=== PATIENT | male | born 1950 | race African-American/Black ===

== ENCOUNTER 2017-01-19 11:34 | Emergency (ER) | payer MEDICARE, OTHER ==
[~2017-01-19] VITALS: Ht 177.8 cm; Wt 65.8 kg
[2017-01-19] VITALS (12 sets, daily range): BP systolic 103–215; BP diastolic 82–105
[~2017-01-19 11:34] MED LIST: ALDACTONE50 MG PO; ASPIRIN EC81 MG PO; ATORVASTATIN CA40 MG PO; CLON; CLONIDINE; DILTIAZEM 24HR240 MG PO; HYDRALAZINE HC100 MG PO; HYDROCHLOROTHIA25 MG PO; K-DUR20 MEQ PO; LEXIVA700 MG PO; MULTIVITAMINS1 EAC2 PO; SERTRALINE HCL25 MG PO
[2017-01-19] MEDS ORDERED: LORazepam Inj 2mg/ml 1ml IV ONE (12:15)
--- NOTE | 2017-01-19 12:35 | Emergency Room Report ---
History of Present Illness General Chief Complaint: General Complaint Source: Patient, Medical Record Present Illness HPI Patient presents with complaints of chills Patient reports that he was in good health yesterday upon waking this morning felt increased chills and uncomfortable sensation Patient was on the phone with his physician's nurse practitioner Who states the patient has an undetectable load for the HIV virus He also has a fairly high CD4 count Patient denies any neck pain or photophobia denies any chest pain or shortness of breath after further questioning he reports smoking marijuana at nighttime yesterday before going to sleep Denies any focal weakness Allergies: Coded Allergies: CODEINE (Verified Allergy, 04/09/12) Patient History Past Medical History: see triage record Pertinent Family History: none Reviewed Nursing Documentation: PMH: Agreed, PSxH: Agreed Nursing Documentation-PMH Past Medical History: No History, Except For Hx Cardiac Problems: Yes Hx Hypertension: Yes Hx Pacemaker: No Hx Asthma: No Hx COPD: No Hx Diabetes: No Hx Cancer: No Hx Gastrointestinal Problems: No Hx Dialysis: No Hx Neurological Problems: Yes Hx Cerebrovascular Accident: Yes Hx Transient Ischemic Attacks: No Hx Dementia: No Hx Alzheimer's Disease: No Hx Parkinson's Disease: No Hx Meningitis: No Hx Encephalitis: No Hx Seizures: Yes Hx Epilepsy: No Hx Multiple Sclerosis: No Hx Cerebral Palsy: No Hx Amyotrophic Lat Sclerosis: No Hx Guillian-[place] Syndrome: No Hx Paralysis: No Hx Peripheral Neuropathy: No Hx Spinal Cord Injury: No Hx Head Trauma: No Hx Traumatic Brain Injury: No Hx Memory Loss: No Hx Concentration Difficulty: No Hx Speech Problem: No Hx Tremors: No Hx Vertigo: No Hx Dizziness: No Hx Syncope: No Hx Headaches: No Hx Aphasia: No Hx Dysphasia: No Hx Numbness: No Hx Weakness: No Hx Fatigue: No Hx Neurologic Surgery: No Hx Brain Shunt: No Review of Systems All Other Systems: negative except mentioned in HPI Physical Exam Vital Signs Date Time Temp Pulse Resp B/P (MAP) Pulse Ox O2 Delivery O2 Flow Rate FiO2 01/19/17 11:44 98.2 109 14 193/105 99 Room Air Sp02 EP Interpretation: reviewed, normal General Appearance: mild distress - appears uncomfortable shaking Head: normocephalic, atraumatic Eyes: bilateral eye PERRL, bilateral eye EOMI ENT: hearing grossly normal, normal pharynx, TMs + canals normal, uvula midline Neck: full range of motion, supple, no meningismus, no bony tend Respiratory: lungs clear, normal breath sounds, no rhonchi, no respiratory distress, no retraction, no accessory muscle use Cardiovascular #1: normal peripheral pulses, regular rate, rhythm, no edema, no gallop, no JVD, no murmur Gastrointestinal: normal bowel sounds, non tender, soft, no mass, no organomegaly, non-distended, no guarding, no hernia, no pulsatile mass, no rebound Genitourinary: no CVA tenderness Musculoskeletal: normal inspection Neurologic: oriented x3, responsive, 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, motor strength/ tone normal, sensory intact Psychiatric: mood/affect normal Skin: normal color, no rash, warm/dry, palpation normal Lymphatic: normal inspection, no adenopathy Procedures Critical Care Time Critical Care Time 40 minutes for multiple re\re evaluations Critical findings requiring repeat evaluation discussion with transferring facility Discussion with family Not including any procedural time Lumbar Puncture Consent: Emergent Location: L3-L4 Anesthesia: 1% Lidocaine w/ Epi Volume Anesthetic (ccs): 5 Prep: bedadine Needle Size: 1 1/2 CSF: bloody Post-Procedure: other - sitting Attempts: Other - two Complications: none Patient Tolerated: Well - Patient was attempted in a sitting position, patient continues to be too tremulous, uncooperative, the palpation of the lower back in the L3-L4 region all the way down to the sacral area shows severe bony anomaly. Anatomy was difficult to evaluate and unfortunately the lumbar puncture results at in a bloody tap. This was sent off for culture Medical Decision Making Diagnostic Impression: Primary Impression: Elevated troponin I level ER Course Patient is a fairly complex patient with multiple differential to consideration including but not limited to cardiac cardiopulmonary and vascular emergencies Infectious pathology also entertained Patient continues to deny any chest pain or shortness of breath Simply complains of feeling chills White blood cell count is elevated Patient's chemistry and chest x-ray are otherwise benign Troponin however came back elevated as well This was repeated and shows increased number EKG has been repeated on different occasions does not show any ST elevation Patient has repeat history and continues to deny any abdominal pain or chest pain Denies any shortness of breath Patient is somewhat agitated reports wanting to stand and walk around At this time given the elevated and rising troponin I felt the patient required to be at a facility with cardiac catheterization [facility] was contacted and cardiology graciously accepted the patient The continues to be a concern of possible encephalopathy arising from infectious versus other process Labs Test 01/19/17 12:25 01/19/17 13:30 01/19/17 13:45 White Blood Count 16.5 K/UL (4.8-10.8) Red Blood Count 3.73 M/UL (4.70-6.10) Hemoglobin 14.6 G/DL (14.2-18.0) Hematocrit 43.1 % (42.0-52.0) Mean Corpuscular Volume 116 FL (80-99) Mean Corpuscular Hemoglobin 39.0 PG (27.0-31.0) Mean Corpuscular Hemoglobin Concent 33.8 G/DL (32.0-36.0) Red Cell Distribution Width 12.1 % (11.6-14.8) Platelet Count 205 K/UL (150-450) Mean Platelet Volume 9.6 FL (6.5-10.1) Neutrophils (%) (Auto) % (45.0-75.0) Lymphocytes (%) (Auto) % (20.0-45.0) Monocytes (%) (Auto) % (1.0-10.0) Eosinophils (%) (Auto) % (0.0-3.0) Basophils (%) (Auto) % (0.0-2.0) Differential Total Cells Counted 100 Neutrophils % (Manual) 88 % (45-75) Lymphocytes % (Manual) 4 % (20-45) Monocytes % (Manual) 5 % (1-10) Eosinophils % (Manual) 1 % (0-3) Basophils % (Manual) 0 % (0-2) Band Neutrophils 2 % (0-8) Platelet Estimate Adequate Platelet Morphology Normal Macrocytosis 1+ Sodium Level 144 mEQ/L (135-145) Potassium Level 3.5 mEQ/L (3.4-4.9) Chloride Level 103 mEQ/L (98-107) Carbon Dioxide Level 16 mEQ/L (20-30) Anion Gap 25 (5-15) Blood Urea Nitrogen 15 mg/dL (7-23) Creatinine 1.6 mg/dL (0.7-1.2) Estimat Glomerular Filtration Rate 52.5 mL/min (>60) Glucose Level 216 mg/dL (74-106) Calcium Level 10.4 mg/dL (8.6-10.2) Total Bilirubin 0.5 mg/dL (0.0-1.2) Aspartate Amino Transf (AST/SGOT) 26 U/L (5-40) Alanine Aminotransferase (ALT/SGPT) 29 U/L (3-41) Alkaline Phosphatase 91 U/L (40-129) Total Creatine Kinase 140 U/L (38-174) Creatine Kinase MB 2.7 ng/mL (< 6.7) Creatine Kinase MB Relative Index 1.9 Troponin I 0.33 ng/mL (<=0.30) Total Protein 8.6 g/dL (6.6-8.7) Albumin 5.0 g/dL (3.5-5.2) Globulin 3.6 g/dL Albumin/Globulin Ratio 1.3 (1.0-2.7) EKG Diagnostic Results Rate: normal Rhythm: NSR ST Segments: no acute changes Rhythm Strip Diag. Results EP Interpretation: yes Rate: 66 Rhythm: NSR, no PVC's, no ectopy Chest X-Ray Diagnostic Results Chest X-Ray Diagnostic Results : Chest X-Ray Ordered: Yes # of Views/Limited/Complete: 1 View Indication: Chest Pain EP Interpretation: Yes Interpretation: no consolidation, no effusion, no pneumothorax Impression: No acute disease Electronically Signed by: Camilla Beltran, CT/MRI/US Diagnostic Results CT/MRI/US Diagnostic Results : Impression ct head:nad cta chest/abd/pelvis:IMPRESSION: No evidence of thoracic or abdominal aortic dissection or aneurysm Ectatic but not frankly aneurysmal aortic branches and bilateral iliac arteries Bilateral intermediate attenuation renal lesions. Possibly complex cysts, but solid neoplastic lesions are not excludable. Consider further evaluation with multiphasic CT, or MRI Bilateral renal cysts. Bilateral subcentimeter low-attenuation renal lesions, too small to characterize, most likely benign simple cyst. No further followup necessary Apparent mild thickening of the descending and sigmoid colon. Probably artifact of under distention, mild colitis changes are not completely excludable, however. Correlate with clinical findings Small subpleural bleb in the right upper lobe. Posterior dependent atelectatic changes and crowding of vascular markings at the lung bases. No acute or significant pulmonary abnormality Cardiomegaly Ectat -- ic bilateral pulmonary arteries, could indicate pulmonary arterial hypertension Thyromegaly. Multiple subcentimeter thyroid nodules. No further followup necessary Multiple thoracic compression fracture deformities, as described above. Age indeterminate. Consider MRI for further evaluation if clinically relevant Possible mild left lower pole renal artery stenosis Colonic diverticulosis Other findings as noted, including prostatomegaly, degenerative spondylosis, bilateral gynecomastia Last Vital Signs Date Time Temp Pulse Resp B/P (MAP) Pulse Ox O2 Delivery O2 Flow Rate FiO2 01/19/17 11:44 98.2 109 14 193/105 99 Room Air Status: improved Disposition: [facility] Condition: Serious CAMILLA BELTRAN D.O. Jan 19, 2017 12:35
[2017-01-19 12:37] LABS: MEAN CORPUSCULAR HGB CONC 33.8 G/DL (32.0-36.0); MEAN CORPUSCULAR VOLUME 116 FL (80-99); MEAN PLATELET VOLUME 9.6 FL (6.5-10.1); PLATELET COUNT 205 K/UL (150-450); RED BLOOD COUNT 3.73 M/UL (4.70-6.10); RED CELL DISTRIBUTION WIDTH 12.1 % (11.6-14.8); WHITE BLOOD COUNT 16.5 K/UL (4.8-10.8)
[2017-01-19 13:03] LABS: TROPONIN I 0.33 ng/mL (<=0.30)
[2017-01-19 13:05] LABS: ALBUMIN/GLOBULIN RATIO 1.3 (1.0-2.7); CALCIUM 10.4 mg/dL (8.6-10.2); CREATININE 1.6 mg/dL (0.7-1.2); GLOMERULAR FILTRATION RATE 52.5 mL/min (>60); POTASSIUM 3.5 mEQ/L (3.4-4.9); TOTAL PROTEIN 8.6 g/dL (6.6-8.7)
[2017-01-19 13:15] LABS: CKMB 2.7 ng/mL (< 6.7)
[2017-01-19 13:44] LABS: BAND NEUTROPHILS % (MANUAL) 2 % (0-8); EOSINOPHILS % (MANUAL) 1 % (0-3); LYMPHOCYTES % (MANUAL) 4 % (20-45); NEUTROPHILS % (MANUAL) 88 % (45-75); TOTAL CELLS COUNTED 100
[2017-01-19 13:45] LABS: BASOPHILS % (MANUAL) 0 % (0-2); PLATELET ESTIMATE ADEQUATE; PLATELET MORPHOLOGY NORMAL
[2017-01-19 13:46] LABS: MACROCYTES 1+
[2017-01-19 14:04] LABS: APPEARANCE,URINE TURBID; KETONES,URINE NEGATIVE (NEGATIVE); LEUKOCYTE ESTERASE ,URINE 1+ (NEGATIVE); NITRITE,URINE NEGATIVE (NEGATIVE); PH,URINE 5 (4.5-8.0); PROTEIN,URINE 3+ (NEGATIVE); UROBILINOGEN,URINE NORMAL MG/DL (0.0-1.0)
[2017-01-19 14:11] LABS: TROPONIN I 0.83 ng/mL (<=0.30)
[2017-01-19] MEDS ORDERED: cefTRIAXone 1 GM in NS 55 ML IVPB ONE (14:15)
[2017-01-19] MEDS ORDERED: Nitroglycerin 2% oint pkt TOPIC ONE (14:15)
[2017-01-19] MEDS ORDERED: Midazolam 2mg/2ml Inj IVP ONE ×2 (14:15→14:30)
[2017-01-19 14:25] LABS: BACTERIA,URINE FEW /HPF; RBC,URINE 0-2 /HPF (0 - 0); SQUAMOUS EPITHELIAL CELL,UR OCCASIONAL /LPF (NONE/OCC)
[2017-01-19] MEDS ORDERED: Vancomycin 1 GM in NS 275 ML IVPB ONE (14:45)
[2017-01-19] MEDS ORDERED: CATAPRES0.1 MG ORAL (14:49)
[2017-01-19] MEDS ORDERED: LEVETIRACETAM750 M1 ORAL (14:49)
[2017-01-19] MEDS ORDERED: TERBINAFINE HC250 MG PO (14:52)
--- NOTE | 2017-01-19 15:26 | Diagnostic Imaging Report ---
Indication: SOB Technique: One view of the chest Comparison: 04/06/2012 Findings: The heart is enlarged. Lungs and pleural spaces are clear. There is right paratracheal prominence which appear similar to the prior study. The aorta is somewhat tortuous and ectatic Impression: Cardiomegaly No acute process
[2017-01-19] MEDS ORDERED: Vancomycin 1gm inj IVPB ONE (15:59)
--- NOTE | 2017-01-19 15:59 | Diagnostic Imaging Report ---
Indications: Altered mental status Technique: Spiral acquisitions obtained through the brain. Angled axial and coronal 5 x 5 mm slices were reconstructed. Total dose length product 1470 mGycm. CTDI vol(s) 70 mGy. Dose reduction achieved using automated exposure control Comparison: 07/12/2011 and 06/04/2011 Findings: There is an area of encephalomalacia in the left occipital and posterior temporal lobes, corresponding to the area of hematoma demonstrated on the earlier CTs. There is suggestion of some peripheral dystrophic calcification. No evidence of acute hemorrhage or edema. No mass effect or midline shift. Previously demonstrated mass effect has resolved, and there is now some exvacuodilatation of the atrium of the left lateral ventricle related to the surrounding encephalomalacia. Again demonstrated is age-related enlargement of the ventricles and extra-axial CSF spaces. Again demonstrated is chronic periventricular deep white matter ischemic change, as well as an old right inferior frontal deep white matter infarct. There is a lacunar infarct within the left parietal deep white matter, extending into the basal ganglia, which was not evident previously but appears chronic. Intact calvarium visualized orbits are unremarkable. Multiple mucous retention cysts are seen in the left maxillary sinus. Previously demonstrated right maxillary sinus mucous retention cyst has decreased significantly in size. Impression: Negative for acute intracranial bleed or mass effect Large area of left temporal and occipital encephalomalacia, corresponding to area of parenchymal hemorrhage described on prior 2012 CT scans Other chronic and age-related changes, including multiple old infarcts, as described Sinus disease Findings previously discussed by phone with Dr. Todd in the emergency room The CT scanner at [facility] is accredited by the [employer] and the scans are performed using protocols designed to limit radiation exposure to as low as reasonably achievable to attain images of sufficient resolution adequate for diagnostic evaluation.
--- NOTE | 2017-01-19 16:34 | Diagnostic Imaging Report ---
INDICATION: Abdominal, chest, and groin area pain TECHNIQUE: IV administration nonionic contrast . Arterial phase spiral acquisitions obtained through the chest, abdomen, and pelvis. Multiplanar and 3-D reconstructions were generated. Total dose length product 968 mGycm. CTDIvol(s) 8, 48, 14 mGy. Radiation dose was minimized using automated exposure control COMPARISON: None FINDINGS Chest: No evidence of thoracic aortic aneurysm or dissection. Classic branching anatomy of the great neck vessels. Although protocol not tailored for evaluation of pulmonary embolus, the pulmonary arteries are reasonably well opacified, and no gross evidence of pulmonary embolus is demonstrated. There is a small subpleural bleb in the right upper lobe. There are posterior dependent atelectatic changes and crowding of the vascular markings posteriorly at the lung bases. The heart is enlarged demonstrating four-chamber enlargement. The right and left pulmonary arteries are somewhat ectatic. No mediastinal or hilar mass or adenopathy. The thyroid is enlarged, demonstrating multiple mostly small nodules, largest measuring 9 mm in diameter. No axillary or chest wall mass or adenopathy. There is mild bilateral gynecomastia. There are compression fracture deformities of T6, T7, T9, and T12, and questionably of T4 and T5. Abdomen pelvis: No evidence of abdominal aortic aneurysm or dissection demonstrated. There are mural calcifications of the abdominal aorta, no significant stenosis. There may be slight compression of the celiac origin by the arcuate ligament, but this does not result in any significant narrowing. The superior mesenteric artery and proximal branches are patent without significant stenosis. There are 2 right and 2 left renal arteries. The lower pole left renal artery and main be slightly narrowed at its origin. The bilateral common iliac arteries are ectatic but not frankly aneurysmal. The external iliac arteries are ectatic, nonstenotic. Patent ectatic but not aneurysmal bilateral internal iliac arteries. No evidence of dissection. The liver, gallbladder, bile ducts, pancreas, spleen, adrenals are unremarkable. The kidneys demonstrate bilateral cysts, as well as bilateral subcentimeter low-attenuation lesions which are too small to characterize. In the interpolar region of the right kidney, there is a 2 cm lesion which demonstrates nonspecific soft tissue attenuation, however. In the posteromedial interpolar region of the left kidney, there is likewise a 1.7 cm intermediate attenuation lesion as well as a questionable 13 mm intermediate attenuation lesion within the lower pole. No pelvic mass or adenopathy. The prostate is prominent. Apparent mild thickening of descending and sigmoid colon noted, probably artifact of under distention. There are a few scattered colonic diverticula. The appendix is normal. No small bowel distention. No free or loculated intraperitoneal air or fluid is evident. There are degenerative changes of the lumbar spine. IMPRESSION: No evidence of thoracic or abdominal aortic dissection or aneurysm Ectatic but not frankly aneurysmal aortic branches and bilateral iliac arteries Bilateral intermediate attenuation renal lesions. Possibly complex cysts, but solid neoplastic lesions are not excludable. Consider further evaluation with multiphasic CT, or MRI Bilateral renal cysts. Bilateral subcentimeter low-attenuation renal lesions, too small to characterize, most likely benign simple cyst. No further followup necessary Apparent mild thickening of the descending and sigmoid colon. Probably artifact of under distention, mild colitis changes are not completely excludable, however. Correlate with clinical findings Small subpleural bleb in the right upper lobe. Posterior dependent atelectatic changes and crowding of vascular markings at the lung bases. No acute or significant pulmonary abnormality Cardiomegaly Ectat -- ic bilateral pulmonary arteries, could indicate pulmonary arterial hypertension Thyromegaly. Multiple subcentimeter thyroid nodules. No further followup necessary Multiple thoracic compression fracture deformities, as described above. Age indeterminate. Consider MRI for further evaluation if clinically relevant Possible mild left lower pole renal artery stenosis Colonic diverticulosis Other findings as noted, including prostatomegaly, degenerative spondylosis, bilateral gynecomastia The CT scanner at [facility] is accredited by the [employer] and the scans are performed using protocols designed to limit radiation exposure to as low as reasonably achievable to attain images of sufficient resolution adequate for diagnostic evaluation.
[2017-01-19 17:18] LABS: REFLEX LACTIC ACID YES OR NO YES
[2017-01-19] MEDS ORDERED: Acetaminophen 500mg (ES) tab ORAL ONE (20:30)
[2017-01-19] MEDS ORDERED: cloNIDine 0.2mg Tab ORAL ONE (22:30)
--- NOTE | 2017-01-21 15:54 | Cardiology Report ---
APPROVED REPORT EKG Measurement Heart [id number] Normal sinus rhythm with sinus arrhythmia Normal ECG
--- NOTE | 2017-01-21 15:55 | Cardiology Report ---
APPROVED REPORT EKG Measurement Heart [id number] Normal sinus rhythm Biatrial enlargement Abnormal ECG
== END 2017-01-19 22:55 | disposition other institution (70) ==
LOC: EMR 13:00 → EDBEDREQ 13:36 → EMR 22:55
DX: R79.89 Other specified abnormal findings of blood chemistry (principal); I10 Essential (primary) hypertension; Z88.6 Allergy status to analgesic agent; Z86.73 Personal history of transient ischemic attack (TIA), and cerebral infarction without residual deficits; R41.82 Altered mental status, unspecified; I51.7 Cardiomegaly; K57.30 Diverticulosis of large intestine without perforation or abscess without bleeding
CPT/HCPCS: 36415; 62270; 70450; 71010; 71275; 74174; 80053; 80300; 81003; 82550; 82553; 82962; 83605; 84484; 85007; 85025; 93005; 96361; 96374; 96375; 99285; J0360; J0696; J2250; J3370; J7050

== ENCOUNTER 2017-01-29 08:56 | Inpatient (IN) | payer OTHER, MEDICARE ==
[~2017-01-29] VITALS: Ht 177.8 cm; Wt 65.8 kg
[~2017-01-29 08:56] MED LIST changes: +CATAPRES0.1 MG ORAL; +LEVETIRACETAM750 M1 ORAL; +TERBINAFINE HC250 MG PO
[2017-01-29 09:30] VITALS: BP 163/100
[2017-01-29 10:09] LABS: MEAN CORPUSCULAR HEMOGLOBIN 37.4 PG (27.0-31.0); MEAN CORPUSCULAR HGB CONC 33.1 G/DL (32.0-36.0); MEAN CORPUSCULAR VOLUME 113 FL (80-99); MEAN PLATELET VOLUME 7.5 FL (6.5-10.1); PLATELET COUNT 308 K/UL (150-450); RED BLOOD COUNT 3.59 M/UL (4.70-6.10); WHITE BLOOD COUNT 8.6 K/UL (4.8-10.8)
[2017-01-29 10:25] LABS: ALBUMIN/GLOBULIN RATIO 1.4 (1.0-2.7); CALCIUM 9.2 mg/dL (8.6-10.2); CREATININE 1.5 mg/dL (0.7-1.2); GLOMERULAR FILTRATION RATE 56.6 mL/min (>60); POTASSIUM 3.4 mEQ/L (3.4-4.9); TOTAL PROTEIN 7.2 g/dL (6.6-8.7); TROPONIN I < 0.30 ng/mL (<=0.30)
[2017-01-29 10:28] LABS: REFLEX LACTIC ACID YES OR NO YES
--- NOTE | 2017-01-29 10:29 | Diagnostic Imaging Report ---
Indication: SOB Technique: One view of the chest Comparison: 01/19/2017 Findings: Lungs and pleural spaces are clear. Heart size is normal . Better inspiration currently Impression: No acute process
[2017-01-29 10:35] LABS: BAND NEUTROPHILS % (MANUAL) 1 % (0-8); BASOPHILS % (MANUAL) 0 % (0-2); CKMB 3.1 ng/mL (< 6.7); EOSINOPHILS % (MANUAL) 1 % (0-3); LYMPHOCYTES % (MANUAL) 9 % (20-45); NEUTROPHILS % (MANUAL) 79 % (45-75); PLATELET ESTIMATE ADEQUATE; PLATELET MORPHOLOGY NORMAL; TOTAL CELLS COUNTED 100
[2017-01-29 10:37] LABS: MACROCYTES 1+
[2017-01-29 10:46] LABS: BILIRUBIN,DIRECT 0.3 mg/dL (0.1-0.3)
[2017-01-29 10:47] VITALS: BP 157/98
[2017-01-29 11:33] VITALS: BP 168/112
[2017-01-29 11:37] LABS: APPEARANCE,URINE SLIGHTLY CLOUDY; KETONES,URINE NEGATIVE (NEGATIVE); LEUKOCYTE ESTERASE ,URINE 2+ (NEGATIVE); NITRITE,URINE NEGATIVE (NEGATIVE); PH,URINE 5 (4.5-8.0); PROTEIN,URINE 3+ (NEGATIVE); UROBILINOGEN,URINE 1 MG/DL (0.0-1.0)
[2017-01-29 11:58] LABS: BACTERIA,URINE FEW /HPF; GRANULAR CASTS,URINE 0-2 /LPF; SQUAMOUS EPITHELIAL CELL,UR FEW /LPF (NONE/OCC)
[2017-01-29] MEDS ORDERED: cefTRIAXone 1 GM in NS 55 ML IVPB ONE (12:45)
[2017-01-29 13:16] VITALS: BP 125/93
[2017-01-29] MEDS ORDERED: Morphine Sulfate 2mg/ml Inj IVP PRN (13:30)
[2017-01-29] MEDS ORDERED: Albuterol/Ipratropium 3ml neb HHN PRN (13:30)
[2017-01-29] MEDS ORDERED: Miralax 17gm pkt ORAL PRN (13:30)
[2017-01-29] MEDS ORDERED: PLAVIX75 MG ORAL (13:33)
[2017-01-29 14:25] LABS: URIC ACID 6.5 mg/dL (3.0-7.5)
[2017-01-29] MEDS: dilTIAZem HCl CD 240mg cap ORAL SCH (15:00)
--- NOTE | 2017-01-29 15:40 | Emergency Room Report ---
History of Present Illness General Chief Complaint: General Complaint Source: Patient Present Illness HPI Patient is a 66-year-old male who presented after increased generalized weakness. The patient had recently had been hospitalized after chest discomfort and had recent cardiac stent placed. The patient denied any chest pain. He reported having a prior history of hypertension. He had prior history of HIV. He was recently noted to have a urinary tract infection. Allergies: Coded Allergies: CODEINE (Verified Allergy, 04/09/12) Patient History Past Medical History: see triage record Reviewed Nursing Documentation: PMH: Agreed, PSxH: Agreed Nursing Documentation-PMH Past Medical History: No History, Except For Hx Cardiac Problems: Yes - stent Hx Hypertension: Yes Hx Pacemaker: No Hx Asthma: No Hx COPD: No Hx Diabetes: No Hx Cancer: No Hx Gastrointestinal Problems: No Hx Dialysis: No Hx Neurological Problems: Yes Hx Cerebrovascular Accident: Yes Hx Transient Ischemic Attacks: No Hx Dementia: No Hx Alzheimer's Disease: No Hx Parkinson's Disease: No Hx Meningitis: No Hx Encephalitis: No Hx Seizures: Yes Hx Epilepsy: No Hx Multiple Sclerosis: No Hx Cerebral Palsy: No Hx Amyotrophic Lat Sclerosis: No Hx Guillian-Protection Syndrome: No Hx Paralysis: No Hx Peripheral Neuropathy: No Hx Spinal Cord Injury: No Hx Head Trauma: No Hx Traumatic Brain Injury: No Hx Memory Loss: No Hx Concentration Difficulty: No Hx Speech Problem: No Hx Tremors: No Hx Vertigo: No Hx Dizziness: No Hx Syncope: No Hx Headaches: No Hx Aphasia: No Hx Dysphasia: No Hx Numbness: No Hx Weakness: No Hx Fatigue: No Hx Neurologic Surgery: No Hx Brain Shunt: No Review of Systems All Other Systems: negative except mentioned in HPI Physical Exam Vital Signs Date Time Temp Pulse Resp B/P (MAP) Pulse Ox O2 Delivery O2 Flow Rate FiO2 01/29/17 08:59 97.7 119 18 115/78 98 Room Air Sp02 EP Interpretation: reviewed, normal General Appearance: normal inspection, well appearing, no apparent distress, alert, GCS 15, Chronically Ill Head: atraumatic ENT: normal ENT inspection, hearing grossly normal, normal voice Neck: normal inspection, full range of motion, supple, no bony tend Respiratory: normal inspection, lungs clear, normal breath sounds, no respiratory distress, no retraction, no wheezing Cardiovascular #1: regular rate, rhythm, no edema Gastrointestinal: normal inspection, normal bowel sounds, non tender, soft, no guarding, no hernia Genitourinary: no CVA tenderness Musculoskeletal: normal inspection, back normal, normal range of motion Neurologic: normal inspection, alert, oriented x3, responsive, 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 Differential diagnosis included was not limited to anemia, urinary tract infection, electrolyte abnormality, hypothyroidism, myocardial infarction, myasthenia gravis, dehydration, among others. Because of complexity of patient's case laboratory testing and imaging studies were ordered. The patient was started on IV antibiotics as well as medications for his blood pressure.Dr. Jo was contacted for inpatient management due to complexity of medical condition. Labs Test 01/29/17 09:30 01/29/17 09:45 01/29/17 10:30 01/29/17 11:15 Uric Acid 6.5 mg/dL (3.0-7.5) White Blood Count 8.6 K/UL (4.8-10.8) Red Blood Count 3.59 M/UL (4.70-6.10) Hemoglobin 13.4 G/DL (14.2-18.0) Hematocrit 40.5 % (42.0-52.0) Mean Corpuscular Volume 113 FL (80-99) Mean Corpuscular Hemoglobin 37.4 PG (27.0-31.0) Mean Corpuscular Hemoglobin Concent 33.1 G/DL (32.0-36.0) Red Cell Distribution Width 12.0 % (11.6-14.8) Platelet Count 308 K/UL (150-450) Mean Platelet Volume 7.5 FL (6.5-10.1) Neutrophils (%) (Auto) % (45.0-75.0) Lymphocytes (%) (Auto) % (20.0-45.0) Monocytes (%) (Auto) % (1.0-10.0) Eosinophils (%) (Auto) % (0.0-3.0) Basophils (%) (Auto) % (0.0-2.0) Differential Total Cells Counted 100 Neutrophils % (Manual) 79 % (45-75) Lymphocytes % (Manual) 9 % (20-45) Monocytes % (Manual) 10 % (1-10) Eosinophils % (Manual) 1 % (0-3) Basophils % (Manual) 0 % (0-2) Band Neutrophils 1 % (0-8) Platelet Estimate Adequate Platelet Morphology Normal Macrocytosis 1+ Sodium Level 136 mEQ/L (135-145) Potassium Level 3.4 mEQ/L (3.4-4.9) Chloride Level 97 mEQ/L (98-107) Carbon Dioxide Level 19 mEQ/L (20-30) Anion Gap 20 (5-15) Blood Urea Nitrogen 24 mg/dL (7-23) Creatinine 1.5 mg/dL (0.7-1.2) Estimat Glomerular Filtration Rate 56.6 mL/min (>60) Glucose Level 188 mg/dL (74-106) Calcium Level 9.2 mg/dL (8.6-10.2) Total Bilirubin 1.1 mg/dL (0.0-1.2) Direct Bilirubin 0.3 mg/dL (0.1-0.3) Aspartate Amino Transf (AST/SGOT) 37 U/L (5-40) Alanine Aminotransferase (ALT/SGPT) 47 U/L (3-41) Alkaline Phosphatase 86 U/L (40-129) Total Creatine Kinase 138 U/L (38-174) Creatine Kinase MB 3.1 ng/mL (< 6.7) Creatine Kinase MB Relative Index 2.2 Troponin I < 0.30 ng/mL (<=0.30) Total Protein 7.2 g/dL (6.6-8.7) Albumin 4.2 g/dL (3.5-5.2) Globulin 3.0 g/dL Albumin/Globulin Ratio 1.4 (1.0-2.7) Lactic Acid Level 1.60 mmol/L (0.66-2.22) Urine Color Yellow Urine Appearance Slightly cloudy Urine pH 5 (4.5-8.0) Urine Specific [place] 1.020 (1.005-1.035) Urine Protein 3+ (NEGATIVE) Urine Glucose (UA) Negative (NEGATIVE) Urine Ketones Negative (NEGATIVE) Urine Occult Blood Negative (NEGATIVE) Urine Nitrite Negative (NEGATIVE) Urine Bilirubin Negative (NEGATIVE) Urine Urobilinogen 1 MG/DL (0.0-1.0) Urine Leukocyte Esterase 2+ (NEGATIVE) Urine RBC 2-4 /HPF (0 - 0) Urine WBC 5-10 /HPF (0 - 0) Urine Squamous Epithelial Cells Few /LPF (NONE/OCC) Urine Bacteria Few /HPF (NONE) Urine Granular Casts 0-2 /LPF (NONE) EKG Diagnostic Results Rate: normal Rhythm: NSR ST Segments: other - lateral t wave changes Rhythm Strip Diag. Results EP Interpretation: yes Rhythm: NSR, no PVC's, no ectopy Last Vital Signs Date Time Temp Pulse Resp B/P (MAP) Pulse Ox O2 Delivery O2 Flow Rate FiO2 01/29/17 13:16 98.2 99 16 125/93 97 01/29/17 11:33 Room Air Status: improved Disposition: ADMITTED INPATIENT Condition: Serious Referrals: NON PHYSICIAN (PCP) Tulio Hardin Jan 29, 2017 15:40
[2017-01-29 15:51] VITALS: BP 123/81
[2017-01-29] MEDS: Vancomycin 1 GM in D5W 275 ML IVPB SCH (16:02)
--- NOTE | 2017-01-29 16:49 | Diagnostic Imaging Report ---
Indication: Hypertension, abnormal renal function tests Technique: Grayscale and duplex images of the kidneys, retroperitoneum, and bladder were obtained. Comparison:Reference made to chest abdomen pelvis CT] 2016 Findings: Right kidney measures 10.8 cm in length. Left kidney measures 9.7 cm in length. Both kidneys demonstrate normal echogenicity. No hydronephrosis. Kidneys demonstrate cysts bilaterally.. Normal inferior vena cava. Bladder is normal. Impression: Negative for hydronephrosis Incidental finding bilateral renal cysts, also described on prior CT scan.
[2017-01-29] MEDS: Cefepime HCl 2 GM in D5W 110 ML IV SCH (17:23)
[2017-01-29 17:58] LABS: APPEARANCE,URINE CLEAR; KETONES,URINE NEGATIVE (NEGATIVE); LEUKOCYTE ESTERASE ,URINE 1+ (NEGATIVE); NITRITE,URINE NEGATIVE (NEGATIVE); PH,URINE 5 (4.5-8.0); PROTEIN,URINE 3+ (NEGATIVE); UROBILINOGEN,URINE 1 MG/DL (0.0-1.0)
[2017-01-29 18:15] LABS: AMORPHOUS SEDIMENT,UR FEW /LPF; BACTERIA,URINE MODERATE /HPF; RBC,URINE 0-2 /HPF (0 - 0)
[2017-01-29 20:00] VITALS: BP 151/96
[2017-01-29] MEDS: Heparin 5000 units/ml inj SUBQ SCH (20:53)
--- NOTE | 2017-01-29 20:56 | Cardiology Progress Note ---
Assessment/Plan Assessment/Plan [id number] ekg unchanged trop neg no sx of acs at this tiem has right hip pain Objective Last 24 Hour Vital Signs Date Time Temp Pulse Resp B/P (MAP) Pulse Ox O2 Delivery O2 Flow Rate FiO2 01/29/17 16:00 86 01/29/17 15:51 97.0 85 20 123/81 97 Room Air 01/29/17 15:00 79 166/100 01/29/17 13:30 98.2 99 16 125/93 97 Room Air 01/29/17 13:16 98.2 99 16 125/93 97 01/29/17 11:42 168/112 01/29/17 11:33 97.3 96 12 168/112 98 Room Air 01/29/17 10:47 97.4 95 19 157/98 99 Room Air 01/29/17 09:30 97.4 104 24 163/100 99 Room Air 01/29/17 08:59 97.7 119 18 115/78 98 Room Air Intake and Output 01/29/17 01/30/17 19:00 07:00 Intake Total 360 ml Balance 360 ml Intake Oral 360 ml # Voids 3 # Bowel Movements 3 Laboratory Tests Test 01/29/17 09:30 01/29/17 09:45 01/29/17 10:30 01/29/17 11:15 Uric Acid 6.5 mg/dL (3.0-7.5) Total Creatine Kinase 139 U/L (38-174) 138 U/L (38-174) White Blood Count 8.6 K/UL (4.8-10.8) Red Blood Count 3.59 M/UL (4.70-6.10) L Hemoglobin 13.4 G/DL (14.2-18.0) L Hematocrit 40.5 % (42.0-52.0) L Mean Corpuscular Volume 113 FL (80-99) H Mean Corpuscular Hemoglobin 37.4 PG (27.0-31.0) H Mean Corpuscular Hemoglobin Concent 33.1 G/DL (32.0-36.0) Red Cell Distribution Width 12.0 % (11.6-14.8) Platelet Count 308 K/UL (150-450) Mean Platelet Volume 7.5 FL (6.5-10.1) Neutrophils (%) (Auto) % (45.0-75.0) Lymphocytes (%) (Auto) % (20.0-45.0) Monocytes (%) (Auto) % (1.0-10.0) Eosinophils (%) (Auto) % (0.0-3.0) Basophils (%) (Auto) % (0.0-2.0) Differential Total Cells Counted 100 Neutrophils % (Manual) 79 % (45-75) H Lymphocytes % (Manual) 9 % (20-45) L Monocytes % (Manual) 10 % (1-10) Eosinophils % (Manual) 1 % (0-3) Basophils % (Manual) 0 % (0-2) Band Neutrophils 1 % (0-8) Platelet Estimate Adequate Platelet Morphology Normal Macrocytosis 1+ Sodium Level 136 mEQ/L (135-145) Potassium Level 3.4 mEQ/L (3.4-4.9) Chloride Level 97 mEQ/L (98-107) L Carbon Dioxide Level 19 mEQ/L (20-30) L Anion Gap 20 (5-15) H Blood Urea Nitrogen 24 mg/dL (7-23) H Creatinine 1.5 mg/dL (0.7-1.2) H Estimat Glomerular Filtration Rate 56.6 mL/min (>60) Glucose Level 188 mg/dL (74-106) H Lactic Acid Level 3.20 mmol/L (0.66-2.22) H 1.60 mmol/L (0.66-2.22) Calcium Level 9.2 mg/dL (8.6-10.2) Total Bilirubin 1.1 mg/dL (0.0-1.2) Direct Bilirubin 0.3 mg/dL (0.1-0.3) Aspartate Amino Transf (AST/SGOT) 37 U/L (5-40) Alanine Aminotransferase (ALT/SGPT) 47 U/L (3-41) H Alkaline Phosphatase 86 U/L (40-129) Creatine Kinase MB 3.1 ng/mL (< 6.7) Creatine Kinase MB Relative Index 2.2 Troponin I < 0.30 ng/mL (<=0.30) Total Protein 7.2 g/dL (6.6-8.7) Albumin 4.2 g/dL (3.5-5.2) Globulin 3.0 g/dL Albumin/Globulin Ratio 1.4 (1.0-2.7) Urine Color Yellow Urine Appearance Slightly cloudy Urine pH 5 (4.5-8.0) Urine Specific [place] 1.020 (1.005-1.035) Urine Protein 3+ (NEGATIVE) H Urine Glucose (UA) Negative (NEGATIVE) Urine Ketones Negative (NEGATIVE) Urine Occult Blood Negative (NEGATIVE) Urine Nitrite Negative (NEGATIVE) Urine Bilirubin Negative (NEGATIVE) Urine Urobilinogen 1 MG/DL (0.0-1.0) H Urine Leukocyte Esterase 2+ (NEGATIVE) H Urine RBC 2-4 /HPF (0 - 0) H Urine WBC 5-10 /HPF (0 - 0) H Urine Squamous Epithelial Cells Few /LPF (NONE/OCC) Urine Bacteria Few /HPF (NONE) Urine Granular Casts 0-2 /LPF (NONE) H Test 01/29/17 16:40 Urine Color Yellow Urine Appearance Clear Urine pH 5 (4.5-8.0) Urine Specific [place] 1.025 (1.005-1.035) Urine Protein 3+ (NEGATIVE) H Urine Glucose (UA) Negative (NEGATIVE) Urine Ketones Negative (NEGATIVE) Urine Occult Blood Negative (NEGATIVE) Urine Nitrite Negative (NEGATIVE) Urine Bilirubin Negative (NEGATIVE) Urine Urobilinogen 1 MG/DL (0.0-1.0) H Urine Leukocyte Esterase 1+ (NEGATIVE) H Urine RBC 0-2 /HPF (0 - 0) H Urine WBC 2-4 /HPF (0 - 0) Urine Squamous Epithelial Cells None /LPF (NONE/OCC) Urine Amorphous Sediment Few /LPF (NONE) H Urine Bacteria Moderate /HPF (NONE) H Urine Eosinophils None seen Urine Random Sodium 64 mmol/L Urine Potassium Timed 63 mmol/L KP FIELDS Jan 29, 2017 20:56
[2017-01-29] MEDS ORDERED: Atorvastatin 80mg tab ORAL SCH (21:00)
--- NOTE | 2017-01-29 21:25 | Consultation ---
Consult Note Consult Note ID # [id number] BRADY BOGGS M.D. Jan 29, 2017 21:25
[2017-01-29] MEDS: HydrALAZINE 50mg tab ORAL SCH (22:06)
[2017-01-29] MEDS: Aspirin EC 81mg tab ORAL SCH (22:07)
[2017-01-30 04:00] VITALS: BP 137/100
[2017-01-30] MEDS: HydrALAZINE 50mg tab ORAL SCH ×3 (06:26→22:02)
[2017-01-30 07:28] LABS: MEAN CORPUSCULAR HEMOGLOBIN 39.3 PG (27.0-31.0); MEAN CORPUSCULAR HGB CONC 34.4 G/DL (32.0-36.0); MEAN CORPUSCULAR VOLUME 114 FL (80-99); MEAN PLATELET VOLUME 7.5 FL (6.5-10.1); PLATELET COUNT 300 K/UL (150-450); RED BLOOD COUNT 3.41 M/UL (4.70-6.10); WHITE BLOOD COUNT 7.9 K/UL (4.8-10.8)
[2017-01-30 07:38] LABS: ALBUMIN/GLOBULIN RATIO 1.3 (1.0-2.7); CALCIUM 9.1 mg/dL (8.6-10.2); CREATININE 1.5 mg/dL (0.7-1.2); GLOMERULAR FILTRATION RATE 56.6 mL/min (>60); MAGNESIUM 1.9 mg/dL (1.7-2.5); POTASSIUM 3.6 mEQ/L (3.4-4.9)
[2017-01-30 07:39] LABS: TROPONIN I < 0.30 ng/mL (<=0.30)
[2017-01-30 08:00] VITALS: BP 136/99
--- NOTE | 2017-01-30 08:16 | Consultation ---
DATE OF CONSULTATION: 01/29/2017 CARDIOLOGY CONSULTATION CONSULTING PHYSICIAN: Andrea Angel M.D. REFERRING PHYSICIAN: Flako Jo M.D. REASON FOR REFERRAL: Coronary artery disease, sepsis. History of present illness: This is an elderly gentleman, who basically has been admitted through the hospital emergency room, not feeling well, says his blood pressure reading at home was elevated and he came to the emergency room. Two weeks earlier, he had been in the emergency room for nonspecific symptoms, but at that time in the emergency room, he was noted to have abnormal set of cardiac enzymes. Repeat cardiac enzymes worsened slightly. The patient was transferred and was evaluated by Saran with . , was taken to the cathode builder, where he was subsequently noted to have 70 to 80% mid right coronary artery stenosis and tortuous vessel that was treated with a [id number] stent. It also has patent left main LAD and circumflex artery with mild basal hypokinesis, otherwise normal LV function and normal left ventricular end-diastolic pressure. The patient was treated with aspirin and Plavix and was subsequently discharged. At this time, he has had no chest pain or pressure. There is no PND and no orthopnea. He uses two pillows for comfort. There is no dizziness on standing. No heart pounding or palpitations. Past Medical History: Positive for history of HIV for which he was hospitalized and was treated at [facility]. He is basically felt to be nondetectable viral load, according to himself. He has also had non-ST elevation myocardial infarction. As noted, he has a history of cerebrovascular accident in 2011 with subsequent seizures and he has had a history of hypertension. No history of heart attack except for as noted above. No cancer. No hepatitis or tuberculosis. No asthma. No emphysema. No ulcers. No kidney, liver problems, or thyroid problems. ALLERGIES: He is allergic to codeine. Social History: He does not smoke. He does drink alcoholic beverages on social occasions and he uses marijuana. No other drugs. Review Of Systems: Gastrointestinal: He has had some constipation. No black or bloody stool. Genitourinary: Negative. Pulmonary: Negative. Constitutional: He has had some chills as part of his symptoms today. Neurological: He has had seizures and CVA on prior occasion. Musculoskeletal: He has significant amount of pain in his right hip that has been going on for some time. PHYSICAL EXAMINATION: General: Shows to be a middle-aged gentleman, looks older than stated age. NECK: Supple. No jugular venous distention. LUNGS: Clear to auscultation and percussion. Cardiac: S1 is normal. S2 is normal. Regular rate and rhythm. No heaves, thrills, gallops, or rubs are noted. ABDOMEN: Soft and nontender. Positive bowel sounds. EXTREMITIES: There is no clubbing, cyanosis, or edema. Laboratory Values And Diagnostic Data: Electrocardiogram shows biphasic T-waves in V4, V5, and V6 and in direct comparison with the EKG performed at [facility] back on 06/23/2014. Those changes were present at that time on that EKG as well. There are some T-wave inversions in lead III and aVF as well. They were present on prior occasions as well. The rest of his blood test, white count 8.6 with a hemoglobin of 13.4 and a platelet count of 308. A direct comparison between present laboratories and the last set of laboratories on 01/19/2017, his white count at that time was 16.5 and now 8.6. Sodium 136, potassium 3.4, chloride 97, bicarbonate 19, BUN 24, creatinine 1.5, and a glucose of 188. Lactic acid was 3.2 initially and subsequently 1.0. Liver function tests appeared to be normal. The troponin is less than 0.03 compared to previous levels of 0.33 and 0.83 on prior occasions. His urinalysis appears to be fairly unremarkable. A chest x-ray was performed today that showed no acute processes. ASSESSMENT AND PLAN: 1. Chills. 2. Right hip pain. 3. Coronary artery disease, status post recent percutaneous coronary intervention of the right coronary artery at [facility] with treatment with [id number] stent and is now on aspirin and Plavix. 4. Human-immunodeficiency virus positive. This patient came into the hospital because of nonspecific symptoms. The last time he came into the hospital, he seemed to have some abnormal cardiac enzyme, which he does not have at this time. His EKG appears to be unchanged from the last one at [facility]. He does not have any chest pain or shortness of breath. Repeat cardiac enzymes, no indications of an acute coronary syndrome at this time. Aspirin and Plavix should be continued for stent protection and prevention of occlusion. His other human-immunodeficiency virus medications will be left up to you. Repeat cardiac enzymes and echocardiogram will be ordered for tomorrow morning. Dr. Jo, thank you for allowing me to participate in the care of this patient. Andrea Angel M.D. DR: Elyse JOB#: [id number] CC:
--- NOTE | 2017-01-30 08:16 | Consultation ---
DATE OF CONSULTATION: INFECTIOUS DISEASE CONSULT CONSULTING PHYSICIAN: Jerome Elizondo M.D. REQUESTING PHYSICIAN: Flako Jo M.D. Reason For Consultation: Evaluation of the patient for sepsis, antibiotic management, and HIV. History Of Present Illness: The patient is a 66-year-old male with multiple medical problems, as listed below, who was admitted to this medical center because of generalized weakness and chills. The patient was recently hospitalized in [facility] and apparently the patient underwent cardiac stent placement. The patient has a history of HIV. According to him, his viral load is undetectable, however, he is not informative regarding his HIV medications or his CD4 count. The patient was found to be weak and was admitted with the impression of sepsis. An Infectious Disease consultation has been requested for further evaluation of the patient and antibiotic management. PAST MEDICAL HISTORY: 1. HIV, unknown CD4 count. 2. History of CVA. 3. History of seizure disorder. 4. History of coronary artery disease with stent placement. 5. Hypertension. 6. History of alcohol abuse. Medications: Abacavir and Tivicay. The patient has been started on cefazolin and vancomycin. ALLERGIES: Codeine. FAMILY HISTORY: Noncontributory. Review Of Systems: HEENT: No recent change in vision or hearing. Pulmonary: No cough or shortness of breath. Cardiovascular: No chest pain or palpitations. Gastrointestinal/Abdomen: No nausea or vomiting. Genitourinary: No dysuria. PHYSICAL EXAMINATION: Vital Signs: Temperature 97 degrees, blood pressure 151/87, pulse 76, and respiratory rate 18. HEENT: No pale conjunctivae. No icterus. NECK: No lymphadenopathy. CHEST: Clear. HEART: S1 and S2. ABDOMEN: Soft and nontender. EXTREMITIES: No cyanosis. NEUROLOGIC: Awake. Laboratory Data: White blood cells 8.6, hemoglobin 13, and platelets 308,000. UA unremarkable. BUN 24 and creatinine 1.3. ALT and AST unremarkable. CD4 count in 2012 was 564. Hepatitis serology back in 2011 was negative. Assessment: The patient is a 66-year-old male with multiple medical problems as listed above, who is admitted to this medical center because of chills and weakness. The patient is afebrile, vital signs are normal. In view of the patient's recent hospitalization, it is important to rule out sepsis. The patient may have, 1. Sepsis. 2. Human immunodeficiency virus. 3. Coronary artery disease. PLAN: 1. We will continue the patient on cefepime and vancomycin for now. 2. We will continue the patient on HIV regimen as mentioned above. 3. Monitor CBC. 4. Monitor BMP. 5. Monitor cultures (blood and urine). 6. Based on the patient's clinical course and labs, we will do further recommendations. Thank you Dr. Jo, for allowing me to participate in the care of this patient. I will follow the patient with you during this hospitalization. Jerome Elizondo M.D. DR: PARVEZ JOB#: [id number] CC:
[2017-01-30] MEDS: Aspirin EC 81mg tab ORAL SCH (08:45)
[2017-01-30] MEDS: dilTIAZem HCl CD 240mg cap ORAL SCH (08:47)
[2017-01-30] MEDS: Heparin 5000 units/ml inj SUBQ SCH ×2 (08:49→22:08)
[2017-01-30] MEDS ORDERED: Sertraline 50mg tab ORAL SCH (09:00)
[2017-01-30] MEDS ORDERED: Dolutegravir Sodium 50mg tab ORAL SCH (09:00)
[2017-01-30] MEDS ORDERED: [UNRECOGNIZED DRUG - OTHER] ORAL SCH (09:00)
[2017-01-30] MEDS ORDERED: Spironolactone 25mg tab ORAL SCH (09:00)
[2017-01-30] MEDS ORDERED: Epzicom tab ORAL SCH (09:00)
[2017-01-30 10:18] LABS: BAND NEUTROPHILS % (MANUAL) 0 % (0-8); BASOPHILS % (MANUAL) 1 % (0-2); EOSINOPHILS % (MANUAL) 2 % (0-3); LYMPHOCYTES % (MANUAL) 16 % (20-45); MACROCYTES 1+; NEUTROPHILS % (MANUAL) 73 % (45-75); PLATELET ESTIMATE ADEQUATE; PLATELET MORPHOLOGY NORMAL; TOTAL CELLS COUNTED 100
[2017-01-30 12:00] VITALS: BP 133/93
--- NOTE | 2017-01-30 12:04 | Consultation ---
Consult Note Consult Note asked to eval for renal failure- Patient admitted with sepsis has 3 + proteinuria and Cr 1.5 Data reviewed patient examined and interviewed Assessment/Plan Status; Renal failure- Likely chronic- Has proteinuria Negative VICENTE HTN: Can be associated with proteinuria HIV: Can be associated with proteinuria h/o CAD h/o CVA h/o Sz h/o ETOH abuse Plan: Per ID Hydrate- Monitor renal parameters Avoid nephrotoxics JUAN LANDIS Jan 30, 2017 12:04
--- NOTE | 2017-01-30 13:10 | Infectious Diseases Prog Note ---
Assessment/Plan Assessment/Plan :A Probable Sepsis. HIV, unknown CD4 count on Abacavir and Tivicay History of CVA History of seizure disorder History of coronary artery disease with stent placement Hypertension History of alcohol abuse PLAN: We will continue the patient on cefepime and vancomycin d # 2 , may stop AB Rx soon if pt is stable will continue the patient on HIV regimen as mentioned above. Monitor CBC. Monitor BMP. Monitor cultures (blood and urine). Subjective Constitutional: Denies: no symptoms, fever, chills, fatigue, anorexia, drenching sweats, other Allergies: Coded Allergies: CODEINE (Verified Allergy, 04/09/12) Objective Vital Signs Last 24 Hour Vital Signs Date Time Temp Pulse Resp B/P (MAP) Pulse Ox O2 Delivery O2 Flow Rate FiO2 01/30/17 08:47 80 136/99 01/30/17 08:00 97.7 86 18 136/99 99 Room Air 01/30/17 07:50 104 18 Room Air 01/30/17 06:26 119/91 01/30/17 06:26 119/91 01/30/17 04:00 89 01/30/17 04:00 97.7 88 22 137/100 99 Room Air 01/30/17 00:00 90 01/29/17 22:06 136/79 01/29/17 20:56 151/96 01/29/17 20:00 82 01/29/17 20:00 97.0 73 21 151/96 98 Room Air 01/29/17 19:00 73 18 Room Air 01/29/17 16:00 86 01/29/17 15:51 97.0 85 20 123/81 97 Room Air 01/29/17 15:00 79 166/100 01/29/17 13:30 98.2 99 16 125/93 97 Room Air 01/29/17 13:16 98.2 99 16 125/93 97 Height (Feet): 5 Height (Inches): 10.00 Weight (Pounds): 145 HEENT: anicteric Respiratory/Chest: normal breath sounds Cardiovascular: regularly irregular Abdomen: no organomegaly Microbiology Date/Time Source Procedure Growth Status 01/29/17 16:40 Indwelling Cath Urine Culture - Preliminary NO GROWTH Resulted Laboratory Tests Test 01/29/17 16:40 01/30/17 06:10 Urine Color Yellow Urine Appearance Clear Urine pH 5 (4.5-8.0) Urine Specific [place] 1.025 (1.005-1.035) Urine Protein 3+ (NEGATIVE) H Urine Glucose (UA) Negative (NEGATIVE) Urine Ketones Negative (NEGATIVE) Urine Occult Blood Negative (NEGATIVE) Urine Nitrite Negative (NEGATIVE) Urine Bilirubin Negative (NEGATIVE) Urine Urobilinogen 1 MG/DL (0.0-1.0) H Urine Leukocyte Esterase 1+ (NEGATIVE) H Urine RBC 0-2 /HPF (0 - 0) H Urine WBC 2-4 /HPF (0 - 0) Urine Squamous Epithelial Cells None /LPF (NONE/OCC) Urine Amorphous Sediment Few /LPF (NONE) H Urine Bacteria Moderate /HPF (NONE) H Urine Eosinophils None seen Urine Random Sodium 64 mmol/L Urine Potassium Timed 63 mmol/L White Blood Count 7.9 K/UL (4.8-10.8) Red Blood Count 3.41 M/UL (4.70-6.10) L Hemoglobin 13.4 G/DL (14.2-18.0) L Hematocrit 38.9 % (42.0-52.0) L Mean Corpuscular Volume 114 FL (80-99) H Mean Corpuscular Hemoglobin 39.3 PG (27.0-31.0) H Mean Corpuscular Hemoglobin Concent 34.4 G/DL (32.0-36.0) Red Cell Distribution Width 12.0 % (11.6-14.8) Platelet Count 300 K/UL (150-450) Mean Platelet Volume 7.5 FL (6.5-10.1) Neutrophils (%) (Auto) % (45.0-75.0) Lymphocytes (%) (Auto) % (20.0-45.0) Monocytes (%) (Auto) % (1.0-10.0) Eosinophils (%) (Auto) % (0.0-3.0) Basophils (%) (Auto) % (0.0-2.0) Differential Total Cells Counted 100 Neutrophils % (Manual) 73 % (45-75) Lymphocytes % (Manual) 16 % (20-45) L Monocytes % (Manual) 8 % (1-10) Eosinophils % (Manual) 2 % (0-3) Basophils % (Manual) 1 % (0-2) Band Neutrophils 0 % (0-8) Platelet Estimate Adequate Platelet Morphology Normal Macrocytosis 1+ Sodium Level 138 mEQ/L (135-145) Potassium Level 3.6 mEQ/L (3.4-4.9) Chloride Level 100 mEQ/L (98-107) Carbon Dioxide Level 25 mEQ/L (20-30) Anion Gap 13 (5-15) Blood Urea Nitrogen 29 mg/dL (7-23) H Creatinine 1.5 mg/dL (0.7-1.2) H Estimat Glomerular Filtration Rate 56.6 mL/min (>60) Glucose Level 98 mg/dL (74-106) Calcium Level 9.1 mg/dL (8.6-10.2) Magnesium Level 1.9 mg/dL (1.7-2.5) Total Bilirubin 0.8 mg/dL (0.0-1.2) Aspartate Amino Transf (AST/SGOT) 29 U/L (5-40) Alanine Aminotransferase (ALT/SGPT) 39 U/L (3-41) Alkaline Phosphatase 88 U/L (40-129) Troponin I < 0.30 ng/mL (<=0.30) Pro-B-Type Natriuretic Peptide 225 pg/mL (0-125) H Total Protein 7.0 g/dL (6.6-8.7) Albumin 4.0 g/dL (3.5-5.2) Globulin 3.0 g/dL Albumin/Globulin Ratio 1.3 (1.0-2.7) Current Medications Medications (Trade) Dose Ordered Sig/Yeny Route PRN Reason Start Time Stop Time Status Last Admin Dose Admin Abacavir/ Lamivudine (Epzicom) 1 tab DAILY ORAL 01/30/17 09:00 03/01/17 08:59 01/30/17 08:46 Acetaminophen (Tylenol) 650 mg Q4H PRN ORAL Mild Pain/Temp > 100.5 01/30/17 05:30 03/01/17 05:29 01/30/17 06:25 Albuterol/ Ipratropium (DuoNeb 0.5-3(2.5)mg/3ml) 3 ml Q4H PRN HHN Shortness of Breath 01/29/17 13:30 02/03/17 13:29 Aspirin (Ecotrin) 81 mg DAILY ORAL 01/29/17 21:30 02/28/17 21:29 01/30/17 08:45 Atorvastatin Calcium (Lipitor) 80 mg QHS ORAL 01/29/17 21:00 02/28/17 20:59 01/29/17 20:55 Cefepime HCl 2 gm/ Dextrose 110 ml @ 220 mls/hr Q24H IV 01/29/17 18:00 02/05/17 17:59 01/29/17 17:23 Clonidine HCl (Catapres) 0.1 mg EVERY 8 HOURS ORAL 01/30/17 06:00 03/01/17 05:59 01/30/17 06:26 Clopidogrel Bisulfate (Plavix) 75 mg DAILY ORAL 01/29/17 21:30 02/28/17 21:29 01/30/17 08:45 Diltiazem HCl (Cardizem CD) 240 mg DAILY ORAL 01/29/17 15:00 02/28/17 14:59 01/30/17 08:47 Dolutegravir Sodium (Tivicay) 50 mg DAILY ORAL 01/30/17 09:00 03/01/17 08:59 01/30/17 08:46 Heparin Sodium (Porcine) (Heparin 5000 units/ml) 5,000 units EVERY 12 HOURS SUBQ 01/29/17 21:00 02/28/17 20:59 01/30/17 08:49 Hydralazine HCl (Apresoline) 50 mg Q8HR ORAL 01/29/17 22:00 02/28/17 21:59 01/30/17 06:26 Levetiracetam (Keppra) 750 mg Q12HR ORAL 01/29/17 21:00 02/28/17 20:59 01/30/17 08:46 Morphine Sulfate (Morphine Sulfate) 2 mg Q4H PRN IVP Moderate Pain (Pain Scale 4-6) 01/29/17 13:30 02/05/17 13:29 Ondansetron HCl (Zofran) 4 mg Q6H PRN IVP Nausea & Vomiting 01/29/17 13:30 02/28/17 13:29 Phenazopyridine HCl (Pyridium) 100 mg DAILYPRN PRN ORAL dysuria 01/29/17 13:30 02/28/17 13:29 Polyethylene Glycol (Miralax) 17 gm DAILYPRN PRN ORAL Constipation 01/29/17 13:30 02/28/17 13:29 Sertraline HCl (Zoloft) 25 mg DAILY ORAL 01/30/17 09:00 03/01/17 08:59 01/30/17 08:46 Spironolactone (Aldactone) 25 mg DAILY ORAL 01/30/17 09:00 03/01/17 08:59 01/30/17 08:46 Temazepam (Restoril) 15 mg HSPRN PRN ORAL Insomnia 01/29/17 13:30 02/05/17 13:29 01/30/17 01:05 Vancomycin HCl (Vanco rx to dose) 1 ea DAILY PRN MISC PER RX PROTOCOL 01/29/17 14:30 02/28/17 14:29 Vancomycin HCl 1 gm/Dextrose 275 ml @ 183.3 mls/ hr Q24H IVPB 01/29/17 16:00 02/03/17 15:59 01/29/17 16:02 BRADY BOGGS M.D. Jan 30, 2017 13:10
--- NOTE | 2017-01-30 15:40 | History and Physical ---
History of Present Illness General Date patient seen: Jan 29, 2017 Reason for Hospitalization: General Complaint Present Illness HPI 66-year-old male with hx of HIV, CAD, with recent stent presented to ER with CC of increased generalized weakness. He had episode of shaking and chills. He was recently noted to have a urinary tract infection. He is admitted to rule out sepsis especially considering his HIV status. Allergies: Coded Allergies: CODEINE (Verified Allergy, 04/09/12) Medication History Scheduled Aspirin Ec* (Aspirin Ec*), 81 MG PO DAILY, (Reported) Clopidogrel Bisulfate* (Plavix*), 75 MG ORAL DAILY, (Reported) Fosamprenavir Calcium* (Lexiva*), 700 MG PO TWICE DAILY, (Reported) Levetiracetam (Levetiracetam), 750 MG ORAL DAILY, (Reported) Multivitamins* (Multivitamins*), 1 EACH PO DAILY, (Reported) Potassium Chloride (Klor-Con M20), 20 MEQ PO DAILY, (Reported) [Clon], 0.3 BID, (Reported) [Clonidine ], 0.1 HS, (Reported) Miscellaneous Medications Atorvastatin Calcium* (Atorvastatin Calcium*), 80 MG PO, (Reported) Clonidine Hcl* (Catapres*), 0.1 MG ORAL, (Reported) Diltiazem Hcl (Diltiazem 24HR Cd), 240 MG PO, (Reported) Hydralazine Hcl* (Hydralazine Hcl*), 100 MG PO, (Reported) Hydrochlorothiazide* (Hydrochlorothiazide*), 25 MG PO, (Reported) Sertraline Hcl* (Sertraline Hcl*), 25 MG PO, (Reported) Spironolactone (Aldactone), 50 MG PO, (Reported) Terbinafine Hcl* (Lamisil*), 250 MG PO, (Reported) Patient History Healthcare decision maker Resuscitation status Full Code Advanced Directive on File Past Medical/Surgical History Past Medical/Surgical History: (1) HIV disease (2) CAD (coronary artery disease) (3) Urinary tract infection Review of Systems All Other Systems: negative except mentioned in HPI Physical Exam General Appearance: WD/WN, mild distress Lines, tubes and drains: peripheral HEENT: normocephalic, atraumatic Neck: non-tender, normal alignment Respiratory/Chest: chest wall non-tender, lungs clear Breasts: no masses Cardiovascular/Chest: normal peripheral pulses, regular rhythm Abdomen: normal bowel sounds, non tender Genitourinary/Rectal: normal genital exam Last 24 Hour Vital Signs Date Time Temp Pulse Resp B/P (MAP) Pulse Ox O2 Delivery O2 Flow Rate FiO2 01/30/17 14:13 133/87 01/30/17 14:13 133/87 01/30/17 12:00 97.9 88 22 133/93 100 Room Air 01/30/17 11:56 100 01/30/17 08:47 80 136/99 01/30/17 08:00 97.7 86 18 136/99 99 Room Air 01/30/17 07:55 85 01/30/17 07:50 104 18 Room Air 01/30/17 06:26 119/91 01/30/17 06:26 119/91 01/30/17 04:00 89 01/30/17 04:00 97.7 88 22 137/100 99 Room Air 01/30/17 00:00 90 01/29/17 22:06 136/79 01/29/17 20:56 151/96 01/29/17 20:00 82 01/29/17 20:00 97.0 73 21 151/96 98 Room Air 01/29/17 19:00 73 18 Room Air 01/29/17 16:00 86 01/29/17 15:51 97.0 85 20 123/81 97 Room Air Laboratory Tests Test 01/29/17 16:40 01/30/17 06:10 Urine Color Yellow Urine Appearance Clear Urine pH 5 (4.5-8.0) Urine Specific [place] 1.025 (1.005-1.035) Urine Protein 3+ (NEGATIVE) H Urine Glucose (UA) Negative (NEGATIVE) Urine Ketones Negative (NEGATIVE) Urine Occult Blood Negative (NEGATIVE) Urine Nitrite Negative (NEGATIVE) Urine Bilirubin Negative (NEGATIVE) Urine Urobilinogen 1 MG/DL (0.0-1.0) H Urine Leukocyte Esterase 1+ (NEGATIVE) H Urine RBC 0-2 /HPF (0 - 0) H Urine WBC 2-4 /HPF (0 - 0) Urine Squamous Epithelial Cells None /LPF (NONE/OCC) Urine Amorphous Sediment Few /LPF (NONE) H Urine Bacteria Moderate /HPF (NONE) H Urine Eosinophils None seen Urine Random Sodium 64 mmol/L Urine Potassium Timed 63 mmol/L White Blood Count 7.9 K/UL (4.8-10.8) Red Blood Count 3.41 M/UL (4.70-6.10) L Hemoglobin 13.4 G/DL (14.2-18.0) L Hematocrit 38.9 % (42.0-52.0) L Mean Corpuscular Volume 114 FL (80-99) H Mean Corpuscular Hemoglobin 39.3 PG (27.0-31.0) H Mean Corpuscular Hemoglobin Concent 34.4 G/DL (32.0-36.0) Red Cell Distribution Width 12.0 % (11.6-14.8) Platelet Count 300 K/UL (150-450) Mean Platelet Volume 7.5 FL (6.5-10.1) Neutrophils (%) (Auto) % (45.0-75.0) Lymphocytes (%) (Auto) % (20.0-45.0) Monocytes (%) (Auto) % (1.0-10.0) Eosinophils (%) (Auto) % (0.0-3.0) Basophils (%) (Auto) % (0.0-2.0) Differential Total Cells Counted 100 Neutrophils % (Manual) 73 % (45-75) Lymphocytes % (Manual) 16 % (20-45) L Monocytes % (Manual) 8 % (1-10) Eosinophils % (Manual) 2 % (0-3) Basophils % (Manual) 1 % (0-2) Band Neutrophils 0 % (0-8) Platelet Estimate Adequate Platelet Morphology Normal Macrocytosis 1+ Sodium Level 138 mEQ/L (135-145) Potassium Level 3.6 mEQ/L (3.4-4.9) Chloride Level 100 mEQ/L (98-107) Carbon Dioxide Level 25 mEQ/L (20-30) Anion Gap 13 (5-15) Blood Urea Nitrogen 29 mg/dL (7-23) H Creatinine 1.5 mg/dL (0.7-1.2) H Estimat Glomerular Filtration Rate 56.6 mL/min (>60) Glucose Level 98 mg/dL (74-106) Calcium Level 9.1 mg/dL (8.6-10.2) Magnesium Level 1.9 mg/dL (1.7-2.5) Total Bilirubin 0.8 mg/dL (0.0-1.2) Aspartate Amino Transf (AST/SGOT) 29 U/L (5-40) Alanine Aminotransferase (ALT/SGPT) 39 U/L (3-41) Alkaline Phosphatase 88 U/L (40-129) Troponin I < 0.30 ng/mL (<=0.30) Pro-B-Type Natriuretic Peptide 225 pg/mL (0-125) H Total Protein 7.0 g/dL (6.6-8.7) Albumin 4.0 g/dL (3.5-5.2) Globulin 3.0 g/dL Albumin/Globulin Ratio 1.3 (1.0-2.7) Microbiology Date/Time Source Procedure Growth Status 01/29/17 16:40 Indwelling Cath Urine Culture - Preliminary NO GROWTH Resulted Height (Feet): 5 Height (Inches): 10.00 Weight (Pounds): 145 Medications Current Medications Medications (Trade) Dose Ordered Sig/Yeny Route PRN Reason Start Time Stop Time Status Last Admin Dose Admin Abacavir/ Lamivudine (Epzicom) 1 tab DAILY ORAL 01/30/17 09:00 03/01/17 08:59 01/30/17 08:46 Acetaminophen (Tylenol) 650 mg Q4H PRN ORAL Mild Pain/Temp > 100.5 01/30/17 05:30 03/01/17 05:29 01/30/17 06:25 Albuterol/ Ipratropium (DuoNeb 0.5-3(2.5)mg/3ml) 3 ml Q4H PRN HHN Shortness of Breath 01/29/17 13:30 02/03/17 13:29 Aspirin (Ecotrin) 81 mg DAILY ORAL 01/29/17 21:30 02/28/17 21:29 01/30/17 08:45 Atorvastatin Calcium (Lipitor) 80 mg QHS ORAL 01/29/17 21:00 02/28/17 20:59 01/29/17 20:55 Cefepime HCl 2 gm/ Dextrose 110 ml @ 220 mls/hr Q24H IV 01/29/17 18:00 02/05/17 17:59 01/29/17 17:23 Clonidine HCl (Catapres) 0.1 mg EVERY 8 HOURS ORAL 01/30/17 06:00 03/01/17 05:59 01/30/17 14:13 Clopidogrel Bisulfate (Plavix) 75 mg DAILY ORAL 01/29/17 21:30 02/28/17 21:29 01/30/17 08:45 Diltiazem HCl (Cardizem CD) 240 mg DAILY ORAL 01/29/17 15:00 02/28/17 14:59 01/30/17 08:47 Dolutegravir Sodium (Tivicay) 50 mg DAILY ORAL 01/30/17 09:00 03/01/17 08:59 01/30/17 08:46 Heparin Sodium (Porcine) (Heparin 5000 units/ml) 5,000 units EVERY 12 HOURS SUBQ 01/29/17 21:00 02/28/17 20:59 01/30/17 08:49 Hydralazine HCl (Apresoline) 50 mg Q8HR ORAL 01/29/17 22:00 02/28/17 21:59 01/30/17 14:13 Levetiracetam (Keppra) 750 mg Q12HR ORAL 01/29/17 21:00 02/28/17 20:59 01/30/17 08:46 Morphine Sulfate (Morphine Sulfate) 2 mg Q4H PRN IVP Moderate Pain (Pain Scale 4-6) 01/29/17 13:30 02/05/17 13:29 Ondansetron HCl (Zofran) 4 mg Q6H PRN IVP Nausea & Vomiting 01/29/17 13:30 02/28/17 13:29 Phenazopyridine HCl (Pyridium) 100 mg DAILYPRN PRN ORAL dysuria 01/29/17 13:30 02/28/17 13:29 Polyethylene Glycol (Miralax) 17 gm DAILYPRN PRN ORAL Constipation 01/29/17 13:30 02/28/17 13:29 Sertraline HCl (Zoloft) 25 mg DAILY ORAL 01/30/17 09:00 03/01/17 08:59 01/30/17 08:46 Spironolactone (Aldactone) 25 mg DAILY ORAL 01/30/17 09:00 03/01/17 08:59 01/30/17 08:46 Temazepam (Restoril) 15 mg HSPRN PRN ORAL Insomnia 01/29/17 13:30 02/05/17 13:29 01/30/17 01:05 Vancomycin HCl (Vanco rx to dose) 1 ea DAILY PRN MISC PER RX PROTOCOL 01/29/17 14:30 02/28/17 14:29 Vancomycin HCl 1 gm/Dextrose 275 ml @ 183.3 mls/ hr Q24H IVPB 01/29/17 16:00 02/03/17 15:59 01/29/17 16:02 Assessment/Plan Problem List: (1) Sepsis ICD Codes: A41.9 - Sepsis, unspecified organism SNOMED: 33147768 (2) Urinary tract infection ICD Codes: N39.0 - Urinary tract infection, site not specified SNOMED: 73527596 (3) Generalized weakness ICD Codes: R53.1 - Weakness SNOMED: 75042634 (4) CAD (coronary artery disease) ICD Codes: I25.10 - Atherosclerotic heart disease of [place] coronary artery without angina pectoris SNOMED: 66936276 (5) HIV disease ICD Codes: B20 - Human immunodeficiency virus [HIV] disease SNOMED: 67828192 Assessment/Plan higgins cultures IV antibiotics ID evaluation symptomatic treatment HEVER WILLIAMSON Jan 30, 2017 15:40
--- NOTE | 2017-01-30 15:41 | Pulmonology Progress Note ---
Assessment/Plan Problems: (1) Sepsis (2) Urinary tract infection (3) Generalized weakness (4) CAD (coronary artery disease) (5) HIV disease Assessment/Plan Ct of right hip check cultures afebrile now all notes reviewed might go to med/surg Subjective ROS Limited/Unobtainable: No Interval Events: c/o right hip pain Allergies: Coded Allergies: CODEINE (Verified Allergy, 04/09/12) Objective Last 24 Hour Vital Signs Date Time Temp Pulse Resp B/P (MAP) Pulse Ox O2 Delivery O2 Flow Rate FiO2 01/30/17 14:13 133/87 01/30/17 14:13 133/87 01/30/17 12:00 97.9 88 22 133/93 100 Room Air 01/30/17 11:56 100 01/30/17 08:47 80 136/99 01/30/17 08:00 97.7 86 18 136/99 99 Room Air 01/30/17 07:55 85 01/30/17 07:50 104 18 Room Air 01/30/17 06:26 119/91 01/30/17 06:26 119/91 01/30/17 04:00 89 01/30/17 04:00 97.7 88 22 137/100 99 Room Air 01/30/17 00:00 90 01/29/17 22:06 136/79 01/29/17 20:56 151/96 01/29/17 20:00 82 01/29/17 20:00 97.0 73 21 151/96 98 Room Air 01/29/17 19:00 73 18 Room Air 01/29/17 16:00 86 01/29/17 15:51 97.0 85 20 123/81 97 Room Air General Appearance: WD/WN HEENT: normocephalic Respiratory/Chest: chest wall non-tender, lungs clear Cardiovascular: normal peripheral pulses, normal rate Abdomen: normal bowel sounds, soft, non tender Genitourinary: normal external genitalia Extremities: no cyanosis Neurologic/Psychiatric: assistant director II-XII grossly normal, no motor/sensory deficits Lymphatic: no neck adenopathy Microbiology Date/Time Source Procedure Growth Status 01/29/17 16:40 Indwelling Cath Urine Culture - Preliminary NO GROWTH Resulted Laboratory Tests 01/29/17 16:40: Urine Color Yellow, Urine Appearance Clear, Urine pH 5, Urine Specific [place] 1.025, Urine Protein 3+H, Urine Glucose (UA) Negative, Urine Ketones Negative, Urine Occult Blood Negative, Urine Nitrite Negative, Urine Bilirubin Negative, Urine Urobilinogen 1H, Urine Leukocyte Esterase 1+H, Urine RBC 0-2H, Urine WBC 2 -4, Urine Squamous Epithelial Cells None, Urine Amorphous Sediment FewH, Urine Bacteria ModerateH, Urine Eosinophils None seen, Urine Random Sodium 64, Urine Potassium Timed 63 01/30/17 06:10: White Blood Count 7.9, Red Blood Count 3.41L, Hemoglobin 13.4L, Hematocrit 38.9L , Mean Corpuscular Volume 114H, Mean Corpuscular Hemoglobin 39.3H, Mean Corpuscular Hemoglobin Concent 34.4, Red Cell Distribution Width 12.0, Platelet Count 300, Mean Platelet Volume 7.5, Neutrophils (%) (Auto) , Lymphocytes (%) ( Auto) , Monocytes (%) (Auto) , Eosinophils (%) (Auto) , Basophils (%) (Auto) , Differential Total Cells Counted 100, Neutrophils % (Manual) 73, Lymphocytes % ( Manual) 16L, Monocytes % (Manual) 8, Eosinophils % (Manual) 2, Basophils % ( Manual) 1, Band Neutrophils 0, Platelet Estimate Adequate, Platelet Morphology Normal, Macrocytosis 1+, Sodium Level 138, Potassium Level 3.6, Chloride Level 100, Carbon Dioxide Level 25, Anion Gap 13, Blood Urea Nitrogen 29H, Creatinine 1.5H, Estimat Glomerular Filtration Rate 56.6, Glucose Level 98, Calcium Level 9.1, Magnesium Level 1.9, Total Bilirubin 0.8, Aspartate Amino Transf (AST/SGOT ) 29, Alanine Aminotransferase (ALT/SGPT) 39, Alkaline Phosphatase 88, Troponin I < 0.30, Pro-B-Type Natriuretic Peptide 225H, Total Protein 7.0, Albumin 4.0, Globulin 3.0, Albumin/Globulin Ratio 1.3 Current Medications Medications (Trade) Dose Ordered Sig/Yeny Route PRN Reason Start Time Stop Time Status Last Admin Dose Admin Abacavir/ Lamivudine (Epzicom) 1 tab DAILY ORAL 01/30/17 09:00 03/01/17 08:59 01/30/17 08:46 Acetaminophen (Tylenol) 650 mg Q4H PRN ORAL Mild Pain/Temp > 100.5 01/30/17 05:30 03/01/17 05:29 01/30/17 06:25 Albuterol/ Ipratropium (DuoNeb 0.5-3(2.5)mg/3ml) 3 ml Q4H PRN HHN Shortness of Breath 01/29/17 13:30 02/03/17 13:29 Aspirin (Ecotrin) 81 mg DAILY ORAL 01/29/17 21:30 02/28/17 21:29 01/30/17 08:45 Atorvastatin Calcium (Lipitor) 80 mg QHS ORAL 01/29/17 21:00 02/28/17 20:59 01/29/17 20:55 Cefepime HCl 2 gm/ Dextrose 110 ml @ 220 mls/hr Q24H IV 01/29/17 18:00 02/05/17 17:59 01/29/17 17:23 Clonidine HCl (Catapres) 0.1 mg EVERY 8 HOURS ORAL 01/30/17 06:00 03/01/17 05:59 01/30/17 14:13 Clopidogrel Bisulfate (Plavix) 75 mg DAILY ORAL 01/29/17 21:30 02/28/17 21:29 01/30/17 08:45 Diltiazem HCl (Cardizem CD) 240 mg DAILY ORAL 01/29/17 15:00 02/28/17 14:59 01/30/17 08:47 Dolutegravir Sodium (Tivicay) 50 mg DAILY ORAL 01/30/17 09:00 03/01/17 08:59 01/30/17 08:46 Heparin Sodium (Porcine) (Heparin 5000 units/ml) 5,000 units EVERY 12 HOURS SUBQ 01/29/17 21:00 02/28/17 20:59 01/30/17 08:49 Hydralazine HCl (Apresoline) 50 mg Q8HR ORAL 01/29/17 22:00 02/28/17 21:59 01/30/17 14:13 Levetiracetam (Keppra) 750 mg Q12HR ORAL 01/29/17 21:00 02/28/17 20:59 01/30/17 08:46 Morphine Sulfate (Morphine Sulfate) 2 mg Q4H PRN IVP Moderate Pain (Pain Scale 4-6) 01/29/17 13:30 02/05/17 13:29 Ondansetron HCl (Zofran) 4 mg Q6H PRN IVP Nausea & Vomiting 01/29/17 13:30 02/28/17 13:29 Phenazopyridine HCl (Pyridium) 100 mg DAILYPRN PRN ORAL dysuria 01/29/17 13:30 02/28/17 13:29 Polyethylene Glycol (Miralax) 17 gm DAILYPRN PRN ORAL Constipation 01/29/17 13:30 02/28/17 13:29 Sertraline HCl (Zoloft) 25 mg DAILY ORAL 01/30/17 09:00 03/01/17 08:59 01/30/17 08:46 Spironolactone (Aldactone) 25 mg DAILY ORAL 01/30/17 09:00 03/01/17 08:59 01/30/17 08:46 Temazepam (Restoril) 15 mg HSPRN PRN ORAL Insomnia 01/29/17 13:30 02/05/17 13:29 01/30/17 01:05 Vancomycin HCl (Vanco rx to dose) 1 ea DAILY PRN MISC PER RX PROTOCOL 01/29/17 14:30 02/28/17 14:29 Vancomycin HCl 1 gm/Dextrose 275 ml @ 183.3 mls/ hr Q24H IVPB 01/29/17 16:00 02/03/17 15:59 01/29/17 16:02 HEVER WILLIAMSON Jan 30, 2017 15:41
[2017-01-30] MEDS: Vancomycin 1 GM in D5W 275 ML IVPB SCH (15:44)
[2017-01-30 16:00] VITALS: BP 125/89
--- NOTE | 2017-01-30 16:15 | Diagnostic Imaging Report ---
Indication: Right Hip pain Technique: continuous helical imaging in the transaxial plane was performed from the iliac crests to the pubic symphysis with attention to the right hip. Coronal 2-D reformatted images were also generated. Study obtained in a Siemens Sensation [address] total DLP 367 mGycm CTD/vol 0.25, 11.41 mGy Comparison: None Findings: There is no evidence of an acute fracture or significant malalignment identified on this examination. There is a comminuted fracture involving the greater trochanter on the right hip. There is no involvement of the intertrochanteric region or lesser trochanter. There is no evidence of a fracture involving the intracapsular part of the femoral neck or head. The bones appears osteopenic. There is soft tissue swelling lateral to the right hip with some subcutaneous reticulation noted. The remainder of the osseous structures visualized on this exam appear intact. Vascular calcifications are present within the aorta and iliac arteries. Vacuum phenomena, endplate and facet spur formation noted within the visualized lower lumbar spine. There is apparent interbody fusion of L5 and S1. Appendix is normal. Impression: Acute comminuted fracture of the right greater trochanter. Lower lumbar spondylosis. Atherosclerotic vascular disease The CT scanner at [facility] is accredited by the [employer] and the scans are performed using dose optimization techniques as appropriate to a performed exam including Automatic Exposure control.
[2017-01-30] MEDS: Cefepime HCl 2 GM in D5W 110 ML IV SCH (17:58)
[2017-01-30 20:00] VITALS: BP 126/79
[2017-01-30 20:51] VITALS: BP 147/84
[2017-01-30] MEDS ORDERED: Albuterol/Ipratropium 3ml neb HHN PRN (21:30)
[2017-01-30] MEDS ORDERED: Morphine Sulfate 2mg/ml Inj IVP PRN (21:30)
[2017-01-30] MEDS: Atorvastatin 80mg tab ORAL SCH (22:01)
[2017-01-31] VITALS: BP 138/79
[2017-01-31 04:00] VITALS: BP 139/84
--- NOTE | 2017-01-31 04:15 | Consultation ---
DATE OF CONSULTATION: 01/30/2017 CONSULTING PHYSICIAN: Kwabena Neal M.D. REFERRING PHYSICIAN: Flako Jo M.D. CHIEF COMPLAINT: Right hip pain. History Of Present Illness: The patient is a 66-year-old gentleman who was a poor historian, who presents with right hip pain. He had a CT scan of the abdomen, it showed right hip fracture. Therefore, orthopedic consultation was obtained for further care and recommendation. The patient does not report any episode where he fell. He is able to bear weight, although he has pain. PAST MEDICAL HISTORY: Reviewed from the intake chart. PAST SURGICAL HISTORY: Reviewed from the intake chart. MEDICATION: Reviewed from the intake chart. Physical Examination: The patient is actually standing and walking with a cane, although he does have pain on the right hip. Neurovascularly normal. Posterior calf is soft. CT scan of the right hip shows a comminuted great trochanteric fracture. Assessment: Comminuted great trochanteric fracture with possible extension in the trochanteric area. Plan: I discussed at this point time, it is unclear when he had this fracture. He does not recall specific trauma. However, he is able to bear weight, although he has pain. At this point, we will recommend to have physical therapy and weightbearing as tolerated. I would recommend use of a walker to make sure he does not fall. He may complete this fracture and if he does, then he will require open reduction and internal fixation. Therefore, we want him to be careful with his mobilization, although he can be weightbearing as tolerated. I will recommend a walker. Kwabena Neal M.D. DR: REGIS JOB#: [id number] CC: Flako Jo M.D.; Fax#: [phone]
[2017-01-31] MEDS: HydrALAZINE 50mg tab ORAL SCH ×3 (05:18→21:52)
[2017-01-31 07:17] LABS: HEMOGLOBIN A1C 4.5 % (< 6.0)
[2017-01-31 07:20] LABS: ALANINE AMINOTRANSFERASE 37 U/L (3-41); ALBUMIN/GLOBULIN RATIO 1.6 (1.0-2.7); ANION GAP 16 (5-15); ASPARTATE AMINO TRANSFERASE 28 U/L (5-40); CALCIUM 9.3 mg/dL (8.6-10.2); CARBON DIOXIDE 22 mEQ/L (20-30); CHLORIDE 99 mEQ/L (98-107); CHOLESTEROL 201 mg/dL (< 200); CHOLESTEROL/HDL RATIO 2.4 (3.3-4.4); CREATININE 1.5 mg/dL (0.7-1.2); CRP QUANT < 0.3 mg/dL (< 0.5); GLOMERULAR FILTRATION RATE 56.6 mL/min (>60); HEMOLYSIS 3; LDL CHOLESTEROL CALC 96 mg/dL (60-99); MAGNESIUM 1.9 mg/dL (1.7-2.5); PHOSPHORUS 2.6 mg/dL (2.5-4.8); POTASSIUM 3.4 mEQ/L (3.4-4.9); SODIUM 137 mEQ/L (135-145); TOTAL PROTEIN 6.8 g/dL (6.6-8.7); URIC ACID 7.1 mg/dL (3.0-7.5)
[2017-01-31 07:28] LABS: MEAN CORPUSCULAR HEMOGLOBIN 39.6 PG (27.0-31.0); MEAN CORPUSCULAR HGB CONC 34.9 G/DL (32.0-36.0); MEAN CORPUSCULAR VOLUME 114 FL (80-99); MEAN PLATELET VOLUME 6.9 FL (6.5-10.1); PLATELET COUNT 287 K/UL (150-450); RED BLOOD COUNT 3.31 M/UL (4.70-6.10); RED CELL DISTRIBUTION WIDTH 12.2 % (11.6-14.8); WHITE BLOOD COUNT 8.2 K/UL (4.8-10.8)
[2017-01-31 07:33] LABS: FERRITIN 271 ng/mL (10-230); THYROID STIMULATING HORMONE 0.626 uIU/mL (0.300-4.500)
[2017-01-31] MEDS ORDERED: Tubing IV Secondary IV ONE (08:12)
[2017-01-31] MEDS ORDERED: D5 1/2NS 1000ml IV ONE (08:12)
[2017-01-31 08:23] VITALS: BP 117/83
[2017-01-31] MEDS: Spironolactone 25mg tab ORAL SCH (08:39)
[2017-01-31] MEDS: dilTIAZem HCl CD 240mg cap ORAL SCH (08:39)
[2017-01-31] MEDS: Aspirin EC 81mg tab ORAL SCH (08:39)
[2017-01-31] MEDS: Epzicom tab ORAL SCH (08:40)
[2017-01-31] MEDS: Sertraline 50mg tab ORAL SCH (08:40)
[2017-01-31] MEDS: Dolutegravir Sodium 50mg tab ORAL SCH (08:40)
[2017-01-31] MEDS: Heparin 5000 units/ml inj SUBQ SCH ×2 (08:47→20:53)
[2017-01-31 09:35] LABS: BAND NEUTROPHILS % (MANUAL) 0 % (0-8); BASOPHILS % (MANUAL) 0 % (0-2); EOSINOPHILS % (MANUAL) 1 % (0-3); LYMPHOCYTES % (MANUAL) 23 % (20-45); MACROCYTES 1+; NEUTROPHILS % (MANUAL) 67 % (45-75); PLATELET ESTIMATE ADEQUATE; PLATELET MORPHOLOGY NORMAL; TOTAL CELLS COUNTED 100
--- NOTE | 2017-01-31 12:01 | General Progress Note ---
Assessment/Plan Status: stable - Cr 1.5 Assessment/Plan Renal failure- Likely chronic- Has proteinuria Negative VICENTE HTN: Can be associated with proteinuria HIV: Can be associated with proteinuria h/o CAD h/o CVA h/o Sz h/o ETOH abuse CT Acute comminuted fracture of the right greater trochanter. Lower lumbar spondylosis. Atherosclerotic vascular disease Plan: Per ID Monitor renal parameters Avoid nephrotoxics per consultants Subjective ROS Limited/Unobtainable: No Constitutional: Reports: malaise Allergies: Coded Allergies: CODEINE (Verified Allergy, 04/09/12) Objective Last 24 Hour Vital Signs Date Time Temp Pulse Resp B/P (MAP) Pulse Ox O2 Delivery O2 Flow Rate FiO2 01/31/17 08:39 95 117/83 01/31/17 08:23 98.1 95 19 117/83 98 Room Air 01/31/17 08:15 98 16 Room Air 01/31/17 05:18 139/84 01/31/17 05:18 139/84 01/31/17 04:00 97.9 78 21 139/84 100 Room Air 01/31/17 00:00 98.2 66 21 138/79 98 Room Air 01/30/17 22:02 159/97 01/30/17 22:02 159/97 01/30/17 20:51 98.4 78 21 147/84 98 Room Air 01/30/17 20:24 88 18 Room Air 01/30/17 20:00 97.7 88 19 126/79 98 Room Air 01/30/17 19:03 77 01/30/17 16:00 97.7 80 19 125/89 100 Room Air 01/30/17 15:13 83 01/30/17 14:13 133/87 01/30/17 14:13 133/87 01/30/17 12:00 97.9 88 22 133/93 100 Room Air 01/30/17 11:56 100 Laboratory Tests 01/31/17 05:50: White Blood Count 8.2, Red Blood Count 3.31L, Hemoglobin 13.1L, Hematocrit 37.6L , Mean Corpuscular Volume 114H, Mean Corpuscular Hemoglobin 39.6H, Mean Corpuscular Hemoglobin Concent 34.9, Red Cell Distribution Width 12.2, Platelet Count 287, Mean Platelet Volume 6.9, Neutrophils (%) (Auto) , Lymphocytes (%) ( Auto) , Monocytes (%) (Auto) , Eosinophils (%) (Auto) , Basophils (%) (Auto) , Differential Total Cells Counted 100, Neutrophils % (Manual) 67, Lymphocytes % ( Manual) 23, Monocytes % (Manual) 9, Eosinophils % (Manual) 1, Basophils % ( Manual) 0, Band Neutrophils 0, Platelet Estimate Adequate, Platelet Morphology Normal, Macrocytosis 1+, Sodium Level 137, Potassium Level 3.4, Chloride Level 99, Carbon Dioxide Level 22, Anion Gap 16H, Blood Urea Nitrogen 28H, Creatinine 1.5H, Estimat Glomerular Filtration Rate 56.6, Glucose Level 93, Hemoglobin A1c 4.5, Uric Acid 7.1, Calcium Level 9.3, Phosphorus Level 2.6, Magnesium Level 1.9 , Ferritin 271H, Total Bilirubin 0.9, Gamma Glutamyl Transpeptidase 28, Aspartate Amino Transf (AST/SGOT) 28, Alanine Aminotransferase (ALT/SGPT) 37, Alkaline Phosphatase 93, Total Creatine Kinase 109, C-Reactive Protein, Quantitative < 0.3, Pro-B-Type Natriuretic Peptide 122, Total Protein 6.8, Albumin 4.2, Globulin 2.6, Albumin/Globulin Ratio 1.6, Triglycerides Level 101, Cholesterol Level 201H, LDL Cholesterol 96, HDL Cholesterol 85H, Cholesterol/ HDL Ratio 2.4L, Vitamin B12 Level 238, Thyroid Stimulating Hormone (TSH) 0.626 Height (Feet): 5 Height (Inches): 10.00 Weight (Pounds): 145 General Appearance: no apparent distress Cardiovascular: tachycardia Respiratory/Chest: decreased breath sounds Abdomen: soft Objective PE not changed JUAN LANDIS Jan 31, 2017 12:01
[2017-01-31 12:13] VITALS: BP 138/88
[2017-01-31 12:31] LABS: HEMOLYSIS 5; IRON 89 ug/dL (59-158); TOTAL IRON BINDING CAPACITY 228 ug/dL (250-400)
[2017-01-31] MEDS ORDERED: Miralax 17gm pkt ORAL PRN (13:30)
[2017-01-31 16:00] VITALS: BP 140/80
[2017-01-31] MEDS ORDERED: Vancomycin 1 GM in D5W 275 ML IVPB SCH (16:00)
--- NOTE | 2017-01-31 16:03 | Pulmonology Progress Note ---
Assessment/Plan Problems: (1) Sepsis (2) Urinary tract infection (3) Generalized weakness (4) CAD (coronary artery disease) (5) HIV disease Assessment/Plan pt/ot check cultures afebrile now all notes reviewed might go to med/surg dc planning when cultures become available Subjective ROS Limited/Unobtainable: No Constitutional: Reports: no symptoms HEENT: Repors: no symptoms Respiratory: Reports: no symptoms Allergies: Coded Allergies: CODEINE (Verified Allergy, 04/09/12) Objective Last 24 Hour Vital Signs Date Time Temp Pulse Resp B/P (MAP) Pulse Ox O2 Delivery O2 Flow Rate FiO2 01/31/17 14:02 138/88 01/31/17 12:13 98.2 83 19 138/88 97 Room Air 01/31/17 08:39 95 117/83 01/31/17 08:23 98.1 95 19 117/83 98 Room Air 01/31/17 08:15 98 16 Room Air 01/31/17 05:18 139/84 01/31/17 05:18 139/84 01/31/17 04:00 97.9 78 21 139/84 100 Room Air 01/31/17 00:00 98.2 66 21 138/79 98 Room Air 01/30/17 22:02 159/97 01/30/17 22:02 159/97 01/30/17 20:51 98.4 78 21 147/84 98 Room Air 01/30/17 20:24 88 18 Room Air 01/30/17 20:00 97.7 88 19 126/79 98 Room Air 01/30/17 19:03 77 Intake and Output 01/31/17 02/01/17 19:00 07:00 Intake Total 450 ml Output Total 400 ml Balance 50 ml Intake Oral 450 ml Output Urine Total [address] scan showed hip fracture, Ortho saw the pt, didn't recommend surgery for now General Appearance: cachetic HEENT: normocephalic Respiratory/Chest: chest wall non-tender, lungs clear Cardiovascular: normal peripheral pulses, normal rate Abdomen: normal bowel sounds, soft, non tender Genitourinary: normal external genitalia Skin: no rash 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, no motor/sensory deficits Lymphatic: no neck adenopathy Microbiology Date/Time Source Procedure Growth Status 01/29/17 09:45 Blood Blood Culture - Preliminary NO GROWTH AFTER 24 HOURS Resulted 01/29/17 09:35 Blood Blood Culture - Preliminary NO GROWTH AFTER 24 HOURS Resulted 01/30/17 04:30 Stool Clostridium difficile Toxin Assay - Final Complete 01/29/17 16:40 Urine,Clean Catch Urine Culture - Preliminary NO GROWTH Resulted 01/29/17 16:40 Indwelling Cath Urine Culture - Preliminary NO GROWTH AFTER 24 HOURS Resulted Laboratory Tests 01/31/17 05:50: White Blood Count 8.2, Red Blood Count 3.31L, Hemoglobin 13.1L, Hematocrit 37.6L , Mean Corpuscular Volume 114H, Mean Corpuscular Hemoglobin 39.6H, Mean Corpuscular Hemoglobin Concent 34.9, Red Cell Distribution Width 12.2, Platelet Count 287, Mean Platelet Volume 6.9, Neutrophils (%) (Auto) , Lymphocytes (%) ( Auto) , Monocytes (%) (Auto) , Eosinophils (%) (Auto) , Basophils (%) (Auto) , Differential Total Cells Counted 100, Neutrophils % (Manual) 67, Lymphocytes % ( Manual) 23, Monocytes % (Manual) 9, Eosinophils % (Manual) 1, Basophils % ( Manual) 0, Band Neutrophils 0, Platelet Estimate Adequate, Platelet Morphology Normal, Macrocytosis 1+, Sodium Level 137, Potassium Level 3.4, Chloride Level 99, Carbon Dioxide Level 22, Anion Gap 16H, Blood Urea Nitrogen 28H, Creatinine 1.5H, Estimat Glomerular Filtration Rate 56.6, Glucose Level 93, Hemoglobin A1c 4.5, Uric Acid 7.1, Calcium Level 9.3, Phosphorus Level 2.6, Magnesium Level 1.9 , Iron Level 89, Total Iron Binding Capacity 228L, Percent Iron Saturation 39, Unsaturated Iron Binding 139, Ferritin 271H, Total Bilirubin 0.9, Gamma Glutamyl Transpeptidase 28, Aspartate Amino Transf (AST/SGOT) 28, Alanine Aminotransferase (ALT/SGPT) 37, Alkaline Phosphatase 93, Total Creatine Kinase 109, C-Reactive Protein, Quantitative < 0.3, Pro-B-Type Natriuretic Peptide 122 , Total Protein 6.8, Albumin 4.2, Globulin 2.6, Albumin/Globulin Ratio 1.6, Triglycerides Level 101, Cholesterol Level 201H, LDL Cholesterol 96, HDL Cholesterol 85H, Cholesterol/HDL Ratio 2.4L, Vitamin B12 Level 238, Folate [ Pending], Thyroid Stimulating Hormone (TSH) 0.626 Current Medications Medications (Trade) Dose Ordered Sig/Yeny Route PRN Reason Start Time Stop Time Status Last Admin Dose Admin Abacavir/ Lamivudine (Epzicom) 1 tab DAILY ORAL 01/31/17 09:00 03/01/17 08:59 01/31/17 08:40 Acetaminophen (Tylenol) 650 mg Q4H PRN ORAL Mild Pain/Temp > 100.5 01/30/17 21:30 03/01/17 05:29 Albuterol/ Ipratropium (DuoNeb 0.5-3(2.5)mg/3ml) 3 ml Q4H PRN HHN Shortness of Breath 01/30/17 21:30 02/03/17 13:29 Aspirin (Ecotrin) 81 mg DAILY ORAL 01/31/17 09:00 02/28/17 21:29 01/31/17 08:39 Atorvastatin Calcium (Lipitor) 80 mg QHS ORAL 01/30/17 21:00 02/28/17 20:59 01/30/17 22:01 Cefepime HCl 2 gm/ Dextrose 110 ml @ 220 mls/hr Q24H IV 01/31/17 18:00 02/05/17 17:59 Clonidine HCl (Catapres) 0.1 mg Q8H PRN ORAL SBP >160 01/31/17 16:00 03/02/17 15:59 Clopidogrel Bisulfate (Plavix) 75 mg DAILY ORAL 01/31/17 09:00 02/28/17 21:29 01/31/17 08:41 Diltiazem HCl (Cardizem CD) 240 mg DAILY ORAL 01/31/17 09:00 02/28/17 14:59 01/31/17 08:39 Dolutegravir Sodium (Tivicay) 50 mg DAILY ORAL 01/31/17 09:00 03/01/17 08:59 01/31/17 08:40 Heparin Sodium (Porcine) (Heparin 5000 units/ml) 5,000 units EVERY 12 HOURS SUBQ 01/30/17 21:00 02/28/17 20:59 01/31/17 08:47 Hydralazine HCl (Apresoline) 50 mg Q8HR ORAL 01/30/17 22:00 02/28/17 21:59 01/31/17 14:02 Levetiracetam (Keppra) 750 mg Q12HR ORAL 01/30/17 21:00 02/28/17 20:59 01/31/17 08:39 Morphine Sulfate (Morphine Sulfate) 2 mg Q4H PRN IVP Moderate Pain (Pain Scale 4-6) 01/30/17 21:30 02/05/17 13:29 Ondansetron HCl (Zofran) 4 mg Q6H PRN IVP Nausea & Vomiting 01/31/17 01:30 02/28/17 13:29 Phenazopyridine HCl (Pyridium) 100 mg DAILYPRN PRN ORAL dysuria 01/31/17 13:30 02/28/17 13:29 Polyethylene Glycol (Miralax) 17 gm DAILYPRN PRN ORAL Constipation 01/31/17 13:30 02/28/17 13:29 Sertraline HCl (Zoloft) 25 mg DAILY ORAL 01/31/17 09:00 03/01/17 08:59 01/31/17 08:40 Spironolactone (Aldactone) 25 mg DAILY ORAL 01/31/17 09:00 03/01/17 08:59 01/31/17 08:39 Temazepam (Restoril) 15 mg HSPRN PRN ORAL Insomnia 01/30/17 23:18 02/06/17 23:17 01/30/17 23:23 Vancomycin HCl (Vanco rx to dose) 1 ea DAILY PRN MISC PER RX PROTOCOL 01/31/17 09:00 02/28/17 14:29 Vancomycin HCl 1 gm/Dextrose 275 ml @ 183.3 mls/ hr Q24H IVPB 01/31/17 16:00 02/03/17 15:59 HEVER WILLIAMSON Jan 31, 2017 16:03
[2017-01-31] MEDS ORDERED: Cefepime HCl 2 GM in D5W 110 ML IV SCH (18:00)
--- NOTE | 2017-01-31 19:09 | Cardiology Report ---
APPROVED REPORT EXAM: Two-dimensional and M-mode echocardiogram with Doppler and color Doppler. INDICATION CAD M-Mode DIMENSIONS IVSd1.2 (0.7-1.1cm)Left Atrium (MM)3.1 (1.6-4.0cm) LVDd5.0 (3.5-5.6cm)Aortic Root3.8 (2.0-3.7cm) PWd1.5 (0.7-1.1cm)Aortic Cusp Exc.1.8 (1.5-2.0cm) LVDs3.6 (2.5-4.0cm) PWs1.2 cm Technically difficult study due to poor acoustical windows due to patient moving. Normal left ventricular chamber size, systolic function and wall motion. Left ventricular ejection fraction estimated to be 60-65%. No evidence of left ventricular hypertrophy. No evidence of pericardial or pleural effusion. All other cardiac chamber sizes are within normal limits. Focal aortic valve sclerosis with adequate cusp excursion. Thickened mitral valve leaflets with normal excursion. Mild mitral annulus and aortic root calcification. Pulmonic valve not well visualized. Normal tricuspid valve structure. IVC is normal in size and collapsible with respiration. A color flow and spectral Doppler study was performed and revealed: No aortic regurgitation. No mitral regurgitation. Mitral diastolic velocities suggest reduced left ventricular relaxation c/w diastolic dysfunction grade 1. No tricuspid regurgitation.
[2017-01-31 20:00] VITALS: BP 143/93
--- NOTE | 2017-01-31 20:44 | Infectious Diseases Prog Note ---
Assessment/Plan Assessment/Plan :A doubt Sepsis at this time HIV, unknown CD4 count on Abacavir and Tivicay CT: Acute comminuted fracture of the right greater trochanter. History of CVA History of seizure disorder History of coronary artery disease with stent placement Hypertension History of alcohol abuse PLAN: DC cefepime and vancomycin d # 3 , and monitor pt off of AB Rx will continue the patient on HIV regimen as mentioned above. Monitor CBC. Monitor BMP. Monitor cultures (blood and urine). Subjective Allergies: Coded Allergies: CODEINE (Verified Allergy, 04/09/12) Subjective afebrile Objective Vital Signs Last 24 Hour Vital Signs Date Time Temp Pulse Resp B/P (MAP) Pulse Ox O2 Delivery O2 Flow Rate FiO2 01/31/17 20:00 97.7 79 18 143/93 97 Room Air 01/31/17 16:00 98.1 82 19 140/80 100 Room Air 01/31/17 14:02 138/88 01/31/17 12:13 98.2 83 19 138/88 97 Room Air 01/31/17 08:39 95 117/83 01/31/17 08:23 98.1 95 19 117/83 98 Room Air 01/31/17 08:15 98 16 Room Air 01/31/17 05:18 139/84 01/31/17 05:18 139/84 01/31/17 04:00 97.9 78 21 139/84 100 Room Air 01/31/17 00:00 98.2 66 21 138/79 98 Room Air 01/30/17 22:02 159/97 01/30/17 22:02 159/97 01/30/17 20:51 98.4 78 21 147/84 98 Room Air Height (Feet): 5 Height (Inches): 10.00 Weight (Pounds): 145 HEENT: atraumatic Respiratory/Chest: no respiratory distress Cardiovascular: regularly irregular Abdomen: no organomegaly Microbiology Date/Time Source Procedure Growth Status 01/29/17 09:45 Blood Blood Culture - Preliminary NO GROWTH AFTER 24 HOURS Resulted 01/29/17 09:35 Blood Blood Culture - Preliminary NO GROWTH AFTER 24 HOURS Resulted 01/30/17 04:30 Stool Clostridium difficile Toxin Assay - Final Complete 01/29/17 16:40 Urine,Clean Catch Urine Culture - Preliminary NO GROWTH Resulted 01/29/17 16:40 Indwelling Cath Urine Culture - Preliminary NO GROWTH AFTER 24 HOURS Resulted Laboratory Tests Test 01/31/17 05:50 White Blood Count 8.2 K/UL (4.8-10.8) Red Blood Count 3.31 M/UL (4.70-6.10) L Hemoglobin 13.1 G/DL (14.2-18.0) L Hematocrit 37.6 % (42.0-52.0) L Mean Corpuscular Volume 114 FL (80-99) H Mean Corpuscular Hemoglobin 39.6 PG (27.0-31.0) H Mean Corpuscular Hemoglobin Concent 34.9 G/DL (32.0-36.0) Red Cell Distribution Width 12.2 % (11.6-14.8) Platelet Count 287 K/UL (150-450) Mean Platelet Volume 6.9 FL (6.5-10.1) Neutrophils (%) (Auto) % (45.0-75.0) Lymphocytes (%) (Auto) % (20.0-45.0) Monocytes (%) (Auto) % (1.0-10.0) Eosinophils (%) (Auto) % (0.0-3.0) Basophils (%) (Auto) % (0.0-2.0) Differential Total Cells Counted 100 Neutrophils % (Manual) 67 % (45-75) Lymphocytes % (Manual) 23 % (20-45) Monocytes % (Manual) 9 % (1-10) Eosinophils % (Manual) 1 % (0-3) Basophils % (Manual) 0 % (0-2) Band Neutrophils 0 % (0-8) Platelet Estimate Adequate Platelet Morphology Normal Macrocytosis 1+ Sodium Level 137 mEQ/L (135-145) Potassium Level 3.4 mEQ/L (3.4-4.9) Chloride Level 99 mEQ/L (98-107) Carbon Dioxide Level 22 mEQ/L (20-30) Anion Gap 16 (5-15) H Blood Urea Nitrogen 28 mg/dL (7-23) H Creatinine 1.5 mg/dL (0.7-1.2) H Estimat Glomerular Filtration Rate 56.6 mL/min (>60) Glucose Level 93 mg/dL (74-106) Hemoglobin A1c 4.5 % (< 6.0) Uric Acid 7.1 mg/dL (3.0-7.5) Calcium Level 9.3 mg/dL (8.6-10.2) Phosphorus Level 2.6 mg/dL (2.5-4.8) Magnesium Level 1.9 mg/dL (1.7-2.5) Iron Level 89 ug/dL (59-158) Total Iron Binding Capacity 228 ug/dL (250-400) L Percent Iron Saturation 39 % (15-50) Unsaturated Iron Binding 139 ug/dL (112-346) Ferritin 271 ng/mL (10-230) H Total Bilirubin 0.9 mg/dL (0.0-1.2) Gamma Glutamyl Transpeptidase 28 U/L (8-61) Aspartate Amino Transf (AST/SGOT) 28 U/L (5-40) Alanine Aminotransferase (ALT/SGPT) 37 U/L (3-41) Alkaline Phosphatase 93 U/L (40-129) Total Creatine Kinase 109 U/L (38-174) C-Reactive Protein, Quantitative < 0.3 mg/dL (< 0.5) Pro-B-Type Natriuretic Peptide 122 pg/mL (0-125) Total Protein 6.8 g/dL (6.6-8.7) Albumin 4.2 g/dL (3.5-5.2) Globulin 2.6 g/dL Albumin/Globulin Ratio 1.6 (1.0-2.7) Triglycerides Level 101 mg/dL (< 150) Cholesterol Level 201 mg/dL (< 200) H LDL Cholesterol 96 mg/dL (60-99) HDL Cholesterol 85 mg/dL (> 60) H Cholesterol/HDL Ratio 2.4 (3.3-4.4) L Vitamin B12 Level 238 pg/mL (211-946) Folate Pending Thyroid Stimulating Hormone (TSH) 0.626 uIU/mL (0.300-4.500) Current Medications Medications (Trade) Dose Ordered Sig/Yeny Route PRN Reason Start Time Stop Time Status Last Admin Dose Admin Abacavir/ Lamivudine (Epzicom) 1 tab DAILY ORAL 01/31/17 09:00 03/01/17 08:59 01/31/17 08:40 Acetaminophen (Tylenol) 650 mg Q4H PRN ORAL Mild Pain/Temp > 100.5 01/30/17 21:30 03/01/17 05:29 Albuterol/ Ipratropium (DuoNeb 0.5-3(2.5)mg/3ml) 3 ml Q4H PRN HHN Shortness of Breath 01/30/17 21:30 02/03/17 13:29 Aspirin (Ecotrin) 81 mg DAILY ORAL 01/31/17 09:00 02/28/17 21:29 01/31/17 08:39 Atorvastatin Calcium (Lipitor) 80 mg QHS ORAL 01/30/17 21:00 02/28/17 20:59 01/30/17 22:01 Cefepime HCl 2 gm/ Dextrose 110 ml @ 220 mls/hr Q24H IV 01/31/17 18:00 02/05/17 17:59 01/31/17 18:32 Clonidine HCl (Catapres) 0.1 mg Q8H PRN ORAL SBP >160 01/31/17 16:00 03/02/17 15:59 Clopidogrel Bisulfate (Plavix) 75 mg DAILY ORAL 01/31/17 09:00 02/28/17 21:29 01/31/17 08:41 Diltiazem HCl (Cardizem CD) 240 mg DAILY ORAL 01/31/17 09:00 02/28/17 14:59 01/31/17 08:39 Dolutegravir Sodium (Tivicay) 50 mg DAILY ORAL 01/31/17 09:00 03/01/17 08:59 01/31/17 08:40 Heparin Sodium (Porcine) (Heparin 5000 units/ml) 5,000 units EVERY 12 HOURS SUBQ 01/30/17 21:00 02/28/17 20:59 01/31/17 08:47 Hydralazine HCl (Apresoline) 50 mg Q8HR ORAL 01/30/17 22:00 02/28/17 21:59 01/31/17 14:02 Levetiracetam (Keppra) 750 mg Q12HR ORAL 01/30/17 21:00 02/28/17 20:59 01/31/17 08:39 Morphine Sulfate (Morphine Sulfate) 2 mg Q4H PRN IVP Moderate Pain (Pain Scale 4-6) 01/30/17 21:30 02/05/17 13:29 Ondansetron HCl (Zofran) 4 mg Q6H PRN IVP Nausea & Vomiting 01/31/17 01:30 02/28/17 13:29 Phenazopyridine HCl (Pyridium) 100 mg DAILYPRN PRN ORAL dysuria 01/31/17 13:30 02/28/17 13:29 Polyethylene Glycol (Miralax) 17 gm DAILYPRN PRN ORAL Constipation 01/31/17 13:30 02/28/17 13:29 Sertraline HCl (Zoloft) 25 mg DAILY ORAL 01/31/17 09:00 03/01/17 08:59 01/31/17 08:40 Spironolactone (Aldactone) 25 mg DAILY ORAL 01/31/17 09:00 03/01/17 08:59 01/31/17 08:39 Temazepam (Restoril) 15 mg HSPRN PRN ORAL Insomnia 01/30/17 23:18 02/06/17 23:17 01/30/17 23:23 Vancomycin HCl (Vanco rx to dose) 1 ea DAILY PRN MISC PER RX PROTOCOL 01/31/17 09:00 02/28/17 14:29 Vancomycin HCl 1 gm/Dextrose 275 ml @ 183.3 mls/ hr Q24H IVPB 01/31/17 16:00 02/03/17 15:59 01/31/17 16:00 BRADY BOGGS M.D. Jan 31, 2017 20:44
[2017-01-31] MEDS: Atorvastatin 80mg tab ORAL SCH (20:48)
[2017-02-01 04:50] VITALS: BP 154/84
[2017-02-01] MEDS: HydrALAZINE 50mg tab ORAL SCH ×2 (05:34→15:00)
--- NOTE | 2017-02-01 08:20 | Consultation ---
History of Present Illness General Date patient seen: Feb 01, 2017 Chief Complaint: General Complaint Present Illness Allergies: Coded Allergies: CODEINE (Verified Allergy, 04/09/12) Medication History Scheduled Aspirin Ec* (Aspirin Ec*), 81 MG PO DAILY, (Reported) Clopidogrel Bisulfate* (Plavix*), 75 MG ORAL DAILY, (Reported) Fosamprenavir Calcium* (Lexiva*), 700 MG PO TWICE DAILY, (Reported) Levetiracetam (Levetiracetam), 750 MG ORAL DAILY, (Reported) Multivitamins* (Multivitamins*), 1 EACH PO DAILY, (Reported) Potassium Chloride (Klor-Con M20), 20 MEQ PO DAILY, (Reported) [Clon], 0.3 BID, (Reported) [Clonidine ], 0.1 HS, (Reported) Miscellaneous Medications Atorvastatin Calcium* (Atorvastatin Calcium*), 80 MG PO, (Reported) Clonidine Hcl* (Catapres*), 0.1 MG ORAL, (Reported) Diltiazem Hcl (Diltiazem 24HR Cd), 240 MG PO, (Reported) Hydralazine Hcl* (Hydralazine Hcl*), 100 MG PO, (Reported) Hydrochlorothiazide* (Hydrochlorothiazide*), 25 MG PO, (Reported) Sertraline Hcl* (Sertraline Hcl*), 25 MG PO, (Reported) Spironolactone (Aldactone), 50 MG PO, (Reported) Terbinafine Hcl* (Lamisil*), 250 MG PO, (Reported) Patient History Healthcare decision maker Resuscitation status Full Code Advanced Directive on File Physical Exam Last 24 Hour Vital Signs Date Time Temp Pulse Resp B/P (MAP) Pulse Ox O2 Delivery O2 Flow Rate FiO2 02/01/17 05:34 154/84 02/01/17 04:50 98.0 79 20 154/84 98 01/31/17 21:52 152/98 01/31/17 20:00 97.7 79 18 143/93 97 Room Air 01/31/17 16:00 98.1 82 19 140/80 100 Room Air 01/31/17 14:02 138/88 01/31/17 12:13 98.2 83 19 138/88 97 Room Air 01/31/17 08:39 95 117/83 01/31/17 08:23 98.1 95 19 117/83 98 Room Air Height (Feet): 5 Height (Inches): 10.00 Weight (Pounds): 145 Medications Current Medications Medications (Trade) Dose Ordered Sig/Yeny Route PRN Reason Start Time Stop Time Status Last Admin Dose Admin Abacavir/ Lamivudine (Epzicom) 1 tab DAILY ORAL 01/31/17 09:00 03/01/17 08:59 01/31/17 08:40 Acetaminophen (Tylenol) 650 mg Q4H PRN ORAL Mild Pain/Temp > 100.5 01/30/17 21:30 03/01/17 05:29 Albuterol/ Ipratropium (DuoNeb 0.5-3(2.5)mg/3ml) 3 ml Q4H PRN HHN Shortness of Breath 01/30/17 21:30 02/03/17 13:29 Aspirin (Ecotrin) 81 mg DAILY ORAL 01/31/17 09:00 02/28/17 21:29 01/31/17 08:39 Atorvastatin Calcium (Lipitor) 80 mg QHS ORAL 01/30/17 21:00 02/28/17 20:59 01/31/17 20:48 Clonidine HCl (Catapres) 0.1 mg Q8H PRN ORAL SBP >160 01/31/17 16:00 03/02/17 15:59 Clopidogrel Bisulfate (Plavix) 75 mg DAILY ORAL 01/31/17 09:00 02/28/17 21:29 01/31/17 08:41 Diltiazem HCl (Cardizem CD) 240 mg DAILY ORAL 01/31/17 09:00 02/28/17 14:59 01/31/17 08:39 Dolutegravir Sodium (Tivicay) 50 mg DAILY ORAL 01/31/17 09:00 03/01/17 08:59 01/31/17 08:40 Heparin Sodium (Porcine) (Heparin 5000 units/ml) 5,000 units EVERY 12 HOURS SUBQ 01/30/17 21:00 02/28/17 20:59 01/31/17 20:53 Hydralazine HCl (Apresoline) 50 mg Q8HR ORAL 01/30/17 22:00 02/28/17 21:59 02/01/17 05:34 Levetiracetam (Keppra) 750 mg Q12HR ORAL 01/30/17 21:00 02/28/17 20:59 01/31/17 20:48 Morphine Sulfate (Morphine Sulfate) 2 mg Q4H PRN IVP Moderate Pain (Pain Scale 4-6) 01/30/17 21:30 02/05/17 13:29 Ondansetron HCl (Zofran) 4 mg Q6H PRN IVP Nausea & Vomiting 01/31/17 01:30 02/28/17 13:29 Phenazopyridine HCl (Pyridium) 100 mg DAILYPRN PRN ORAL dysuria 01/31/17 13:30 02/28/17 13:29 Polyethylene Glycol (Miralax) 17 gm DAILYPRN PRN ORAL Constipation 01/31/17 13:30 02/28/17 13:29 Sertraline HCl (Zoloft) 25 mg DAILY ORAL 01/31/17 09:00 03/01/17 08:59 01/31/17 08:40 Spironolactone (Aldactone) 25 mg DAILY ORAL 01/31/17 09:00 03/01/17 08:59 01/31/17 08:39 Temazepam (Restoril) 15 mg HSPRN PRN ORAL Insomnia 01/30/17 23:18 02/06/17 23:17 01/31/17 23:19 Assessment/Plan Assessment/Plan (1) Right greater trochanteric fracture (2) Right hip pain seen dictated LIANNE CAUSEY Feb 01, 2017 08:20
[2017-02-01 08:27] VITALS: BP 155/93
[2017-02-01] MEDS: dilTIAZem HCl CD 240mg cap ORAL SCH (08:39)
[2017-02-01] MEDS: Dolutegravir Sodium 50mg tab ORAL SCH (08:40)
[2017-02-01] MEDS: Aspirin EC 81mg tab ORAL SCH (08:41)
[2017-02-01] MEDS: Sertraline 50mg tab ORAL SCH (08:42)
[2017-02-01] MEDS: Epzicom tab ORAL SCH (08:43)
[2017-02-01] MEDS: Spironolactone 25mg tab ORAL SCH (08:43)
[2017-02-01] MEDS: Heparin 5000 units/ml inj SUBQ SCH (08:46)
--- NOTE | 2017-02-01 11:32 | General Progress Note ---
Assessment/Plan Status: stable Assessment/Plan Renal failure- Likely chronic- Has proteinuria Negative VICENTE HTN: Can be associated with proteinuria HIV: Can be associated with proteinuria h/o CAD h/o CVA h/o Sz h/o ETOH abuse CT Acute comminuted fracture of the right greater trochanter. Lower lumbar spondylosis. Atherosclerotic vascular disease Plan: no labs today Per ID Monitor renal parameters Avoid nephrotoxics per consultants ? Dc planning?? Subjective ROS Limited/Unobtainable: No Constitutional: Reports: malaise, other - getting stronger Allergies: Coded Allergies: CODEINE (Verified Allergy, 04/09/12) Objective Last 24 Hour Vital Signs Date Time Temp Pulse Resp B/P (MAP) Pulse Ox O2 Delivery O2 Flow Rate FiO2 02/01/17 08:39 95 155/93 02/01/17 08:27 97.9 95 19 155/93 99 Room Air 02/01/17 05:34 154/84 02/01/17 04:50 98.0 79 20 154/84 98 01/31/17 21:52 152/98 01/31/17 20:00 97.7 79 18 143/93 97 Room Air 01/31/17 16:00 98.1 82 19 140/80 100 Room Air 01/31/17 14:02 138/88 01/31/17 12:13 98.2 83 19 138/88 97 Room Air Height (Feet): 5 Height (Inches): 10.00 Weight (Pounds): 145 General Appearance: no apparent distress Objective PE not changed JUAN LANDIS Feb 01, 2017 11:32
[2017-02-01 11:33] VITALS: BP 145/90
[2017-02-01] MEDS ORDERED: ALDACTONE25 MG ORAL (14:33)
[2017-02-01] MEDS ORDERED: KEPPRA500 MG ORAL (14:33)
[2017-02-01] MEDS ORDERED: CARDIAZEM CD240 MG ORAL (14:33)
[2017-02-01] MEDS ORDERED: PLAVIX75 MG ORAL (14:33)
[2017-02-01] MEDS ORDERED: APRESOLINE50 MG ORAL (14:33)
[2017-02-01] MEDS ORDERED: ZOLOFT50 MG ORAL (14:33)
--- NOTE | 2017-02-01 14:40 | Pulmonology Progress Note ---
Assessment/Plan Problems: (1) Sepsis (2) Urinary tract infection (3) Generalized weakness (4) CAD (coronary artery disease) (5) HIV disease Assessment/Plan pt/ot check cultures afebrile now all notes reviewed dc planning pt will need front-twheel walker Subjective ROS Limited/Unobtainable: No Constitutional: Reports: no symptoms HEENT: Repors: no symptoms Allergies: Coded Allergies: CODEINE (Verified Allergy, 04/09/12) Objective Last 24 Hour Vital Signs Date Time Temp Pulse Resp B/P (MAP) Pulse Ox O2 Delivery O2 Flow Rate FiO2 02/01/17 11:33 97.6 95 19 145/90 98 Room Air 02/01/17 08:39 95 155/93 02/01/17 08:27 97.9 95 19 155/93 99 Room Air 02/01/17 05:34 154/84 02/01/17 04:50 98.0 79 20 154/84 98 01/31/17 21:52 152/98 01/31/17 20:00 97.7 79 18 143/93 97 Room Air 01/31/17 16:00 98.1 82 19 140/80 100 Room Air Intake and Output 02/01/17 02/02/17 19:00 07:00 Intake Total 520 ml Output Total 500 ml Balance 20 ml Intake Oral 520 ml Output Urine Total [address] scan showed hip fracture, Ortho saw the pt, didn't recommend surgery for now General Appearance: no acute distress HEENT: normocephalic, atraumatic, anicteric Respiratory/Chest: lungs clear, normal breath sounds Cardiovascular: normal peripheral pulses, normal rate Abdomen: normal bowel sounds, non distended Genitourinary: normal external genitalia Skin: no rash, no ulcers Microbiology Date/Time Source Procedure Growth Status 01/30/17 04:30 Stool Clostridium difficile Toxin Assay - Final Complete 01/29/17 16:40 Urine,Clean Catch Urine Culture - Preliminary NO GROWTH AFTER 24 HOURS Resulted 01/29/17 16:40 Indwelling Cath Urine Culture - Final NO GROWTH AFTER 48 HOURS Complete Current Medications Medications (Trade) Dose Ordered Sig/Yeny Route PRN Reason Start Time Stop Time Status Last Admin Dose Admin Abacavir/ Lamivudine (Epzicom) 1 tab DAILY ORAL 01/31/17 09:00 03/01/17 08:59 02/01/17 08:43 Acetaminophen (Tylenol) 650 mg Q4H PRN ORAL Mild Pain/Temp > 100.5 01/30/17 21:30 03/01/17 05:29 Albuterol/ Ipratropium (DuoNeb 0.5-3(2.5)mg/3ml) 3 ml Q4H PRN HHN Shortness of Breath 01/30/17 21:30 02/03/17 13:29 Aspirin (Ecotrin) 81 mg DAILY ORAL 01/31/17 09:00 02/28/17 21:29 02/01/17 08:41 Atorvastatin Calcium (Lipitor) 80 mg QHS ORAL 01/30/17 21:00 02/28/17 20:59 01/31/17 20:48 Clonidine HCl (Catapres) 0.1 mg Q8H PRN ORAL SBP >160 01/31/17 16:00 03/02/17 15:59 Clopidogrel Bisulfate (Plavix) 75 mg DAILY ORAL 01/31/17 09:00 02/28/17 21:29 02/01/17 08:41 Diltiazem HCl (Cardizem CD) 240 mg DAILY ORAL 01/31/17 09:00 02/28/17 14:59 02/01/17 08:39 Dolutegravir Sodium (Tivicay) 50 mg DAILY ORAL 01/31/17 09:00 03/01/17 08:59 02/01/17 08:40 Heparin Sodium (Porcine) (Heparin 5000 units/ml) 5,000 units EVERY 12 HOURS SUBQ 01/30/17 21:00 02/28/17 20:59 02/01/17 08:46 Hydralazine HCl (Apresoline) 50 mg Q8HR ORAL 01/30/17 22:00 02/28/17 21:59 02/01/17 05:34 Levetiracetam (Keppra) 750 mg Q12HR ORAL 01/30/17 21:00 02/28/17 20:59 02/01/17 08:39 Morphine Sulfate (Morphine Sulfate) 2 mg Q4H PRN IVP Moderate Pain (Pain Scale 4-6) 01/30/17 21:30 02/05/17 13:29 Ondansetron HCl (Zofran) 4 mg Q6H PRN IVP Nausea & Vomiting 01/31/17 01:30 02/28/17 13:29 Phenazopyridine HCl (Pyridium) 100 mg DAILYPRN PRN ORAL dysuria 01/31/17 13:30 02/28/17 13:29 Polyethylene Glycol (Miralax) 17 gm DAILYPRN PRN ORAL Constipation 01/31/17 13:30 02/28/17 13:29 Sertraline HCl (Zoloft) 25 mg DAILY ORAL 01/31/17 09:00 03/01/17 08:59 02/01/17 08:42 Spironolactone (Aldactone) 25 mg DAILY ORAL 01/31/17 09:00 03/01/17 08:59 02/01/17 08:43 Temazepam (Restoril) 15 mg HSPRN PRN ORAL Insomnia 01/30/17 23:18 02/06/17 23:17 01/31/17 23:19 HEVER WILLIAMSON Feb 01, 2017 14:40
[2017-02-01 15:00] VITALS: BP 145/90
[2017-02-01] MEDS ORDERED: Tubing IV Secondary IV ONE (16:36)
[2017-02-01] MEDS ORDERED: NS 275ml ONE (16:36)
--- NOTE | 2017-02-02 08:01 | Consultation ---
DATE OF CONSULTATION: 02/01/2017 PAIN MANAGEMENT CONSULTATION CONSULTING PHYSICIAN: Patti Rey M.D. REFERRING PHYSICIAN: Flako Jo M.D. PHYSICIAN SUBWAY TRAIN DRIVER: Denise Arthur CHIEF COMPLAINT: Right hip pain. History Of Present Illness: This is a 67-year-old male who is being seen on the Med/Surg floor of [facility] for initial comprehensive pain management consultation. The patient reports that he has been having right hip pain. It is off and on. It is acute, rating at 9/10, describing it as a sharp pain, increased with movement, and nothing has been helping to relieve his pain. CT scan of the right hip showed right greater trochanteric fracture causing right hip pain, seen by orthopedic surgeon, who advised the patient to do physical therapy and weightbearing as tolerated, walking with a walker so that he should not fall that would cause him to have a complete fracture and needing open reduction and internal fixation. At this time, the patient is comfortable and in no acute distress, on morphine as needed 2 mg IV every 4 hours as needed for moderate pain, and in no acute distress at this time, walking with a walker. PAST MEDICAL HISTORY: Hypertension, HIV, and CVA. PAST SURGICAL HISTORY: Hernia repair and lumbar fusion. Medications: Aspirin, Plavix, levetiracetam, multivitamin, clonidine, atorvastatin, Diltiazem, hydralazine, hydrochlorothiazide, spironolactone, and terbinafine. ALLERGIES: Codeine. SOCIAL HISTORY: Smoking marijuana. Review Of Systems: Denies rash, fever, chills, sweating, dizziness, drowsiness, blurred vision, sore throat, or change in weight. No shortness of breath or chest pain. No nausea, vomiting, diarrhea, or blood in the stool or urine. No bowel or bladder incontinence. No dysuria. He is complaining of right hip pain. PHYSICAL EXAMINATION: GENERAL: Alert, awake, and oriented x3. Vital Signs: Blood pressure 154/84, heart rate is 79, oxygen saturation is 98%, respiratory rate 17, and temperature 98 degrees Fahrenheit. Height 5 feet 10 inches and weight is pounds. HEENT: PERRLA. Neck: Range of motion is full in all directions. No tenderness to paracervical muscles. No adenopathy. LUNGS: Clear. HEART: Regular. ABDOMEN: Benign. Back: Range of motion is decreased in flexion and extension with tenderness to paraspinal muscles. No tenderness to trapezius or rhomboid muscles. Extremities: Upper extremity range of motion is full in all directions. Motor is intact. No cyanosis. No clubbing. No edema. Sensory is intact. Reflexes are not obtainable. No adenopathy. Lower extremity range of motion is decreased due to the patient's clinical condition with tenderness to palpation in the right hip. Sensory is intact. Reflexes are not obtainable. No adenopathy. Assessment And Plan: This is a 67-year-old male with right greater trochanteric fracture and right hip pain. The patient will be continued on morphine 2 mg IV every 4 hours as needed for severe pain. The patient was discussed with Dr. Rey and Dr. Rey concurred. We will follow the patient. Thank you very much for the courtesy of this consultation. Patti Rey M.D. REYMUNDO Arthur DR: MIAYK JOB#: [id number] CC: ABNER
--- NOTE | 2017-02-02 09:51 | Discharge Summary ---
Discharge Summary Hospital Course Date of Admission Jan 29, 2017 at 12:17 Date of Discharge Feb 01, 2017 at 16:37 Admitting Diagnosis sepsis HPI Brad Seay is a 67 year old male who was admitted on Jan 29, 2017 at 12:17 for Sepsis Hospital Course [id number] Discharge Discharge Disposition Patient was discharged to Home (01) Discharge Diagnoses: Dorina Bennett NP Feb 02, 2017 09:51
--- NOTE | 2017-02-03 03:45 | Discharge Summary 2 SIG ---
DATE OF ADMISSION: 01/29/2017 DATE OF DISCHARGE: 02/01/2017 CONSULTANTS: 1. Patti Rey M.D. 2. Shelton Pineda M.D. 3. Jerome Elizondo M.D. 4. Kwabena Neal M.D. 5. Andrea Angel M.D. Brief Hospital Course: The patient is a 66-year-old male with history of human immunodeficiency virus and coronary artery disease with recent stent placement, presented to the ED complaining of increased generalized weakness and had episodes of shaking and chills. He was recently diagnosed with urinary tract infection. On evaluation at ED, heart rate was 119 and temperature was 97 degrees. Urinalysis showed urine WBC 5 to 10 with urine RBC 2 to 4 with 2+ leukocyte esterase and negative nitrite. EKG was sinus with lateral T-wave changes. Due to HIV status, the patient was admitted to rule out sepsis. He was started on cefepime and vancomycin. The patient is unaware of latest CD4 count. He was continued on his Abacavir and Tivicay. The patient had a recent stent placement and was continued on aspirin and Plavix. EKG appeared unchanged from last EKG during last admission at [facility] and does not have any chest pain or shortness of breath. There are no indications of acute coronary syndrome at this time. He had proteinuria with creatinine of 1.5. Renal failure likely chronic, possibly from hypertensive nephropathy as well as human immunodeficiency virus, which can be associated with proteinuria. Kidney ultrasound showed normal echogenic kidneys. He was given pain management consisting of morphine 2 mg intravenous q.4 hours p.r.n. He complained of right hip pain. An orthopedic consultation was obtained. CT scan of the right hip showed comminuted greater trochanteric fracture, unclear when the fracture occurred. The patient did not recall any specific trauma, however, he is able to bear weight with some pain. He was recommended physical therapy with weightbearing as tolerated. Recommended to use walker upon ambulation. He was eventually discharged home. FINAL DIAGNOSES: 1. Urinary tract infection, doubt sepsis. 2. Generalized weakness. 3. Coronary artery disease. 4. Human immunodeficiency virus. 5. Chronic renal failure. 6. Old cerebrovascular accident. 7. Seizure disorder. 8. Ethyl alcohol abuse. 9. Hypertension. 10. Acute comminuted fracture of the right greater trochanter. DISPOSITION: The patient was discharged home. FOLLOWUP: Follow up with PMD as outpatient. Activity: Weightbearing as tolerated. Advised to ambulate with a walker to prevent falls. Flako Jo M.D. I have been assigned to dictate discharge summary on this account and I was not involved in the patient's management. Dorina Bennett N.P. DR: KRYSTAL JOB#: [id number] CC: ABNER
--- NOTE | 2017-02-06 08:30 | Progress Note ---
DATE: 01/31/2017 Subjective: The patient was diagnosed with a right greater trochanteric fracture. He has been allowed to start physical therapy, weightbearing as tolerated with use of a walker. He does have pain in the right hip, but is able to stand. He does have weakness and a limb examination shows obvious Trendelenburg gait. The patient is able to bear weight. Sensation +2 ASSESSMENT: Right greater trochanter fracture. Discussion: At this point, he is able to bear weight. At this point, stable, not displaced, isolated right greater trochanter fracture, although the CT scan looks like there is in the trochanteric area. At this point, given that he is able to bear weight, we are going to continue with PT and OT, weightbearing as tolerated, use of a walker. I discussed with him it will take up to 6 weeks for the fracture to completely heal. After that he can be a little bit more aggressive on strengthening the abductors. Risks, limitations, expectations, and complication with conservative treatment including the possibility of fall and displacing the fracture that required surgery discussed with the patient. Kwabena Neal M.D. DR: YOMI JOB#: [id number] CC:
--- NOTE | 2017-02-25 18:11 | Cardiology Report ---
APPROVED REPORT EKG Measurement Heart [id number] Normal sinus rhythm with sinus arrhythmia Left axis deviation T wave abnormality, consider lateral ischemia Prolonged QT Abnormal ECG
== END 2017-02-01 16:37 | disposition home or self-care (01) | DRG 463 ==
LOC: EMR 09:21 → 2E 12:17 → EDBEDREQ 12:23 → 4E 01-30 20:25
DX: N39.0 Urinary tract infection, site not specified (principal); M84.459A Pathological fracture, hip, unspecified, initial encounter for fracture; I69.398 Other sequelae of cerebral infarction; R56.9 Unspecified convulsions; I25.10 Atherosclerotic heart disease of native coronary artery without angina pectoris; M47.816 Spondylosis without myelopathy or radiculopathy, lumbar region; F10.10 Alcohol abuse, uncomplicated; F12.90 Cannabis use, unspecified, uncomplicated; I25.2 Old myocardial infarction; I12.9 Hypertensive chronic kidney disease with stage 1 through stage 4 chronic kidney disease, or unspecified chronic kidney disease; N18.9 Chronic kidney disease, unspecified; Z95.5 Presence of coronary angioplasty implant and graft; Z98.1 Arthrodesis status
CPT/HCPCS: 36415; 71010; 76775; 80053; 80061; 80202; 80299; 81001; 81003; 82248; 82550; 82553; 82607; 82728; 82746; 82977; 83036; 83540; 83550; 83605; 83735; 83880; 84100; 84133; 84300; 84443; 84484; 84550; 85007; 85025; 86140; 87040; 87086; 87324; 89050; 93005; 93306; 94664; 99285